=== PATIENT | male | born 1960 | race Caucasian/White ===

== ENCOUNTER 2024-09-14 10:15 | Outpatient (REF) | payer SELFPAY ==
--- NOTE | ~2024-09-14 | XR_ITS ---
EXAMINATION: XR KNEE 3 VIEWS RIGHT HISTORY: BL knee pain/OA? COMPARISON: There are no prior studies available for comparison. FINDINGS: Three views of the right knee are submitted. Osseous mineralization is normal. There is no fracture or dislocation. The joint spaces are preserved. There is chondrocalcinosis. There is no joint effusion. XR/XR knee RT 3V IMPRESSION: Chondrocalcinosis. Otherwise unremarkable examination of the right knee. Electronically signed by: Timothy Lyons MD 09/14/2024 11:54 AM MANI
--- NOTE | ~2024-09-14 | XR_ITS ---
EXAMINATION: XR FOOT 3 OR MORE VIEWS RIGHT HISTORY: achilles area pain COMPARISON: There are no prior studies available for comparison. FINDINGS: Three views of the right foot are submitted. Osseous mineralization is normal. There is no fracture or dislocation. There is mild degenerative change of the MTP joint of the great toe. There is a tiny plantar calcaneal spur. There is calcification of the distal Achilles tendon. XR/XR foot RT min 3V IMPRESSION: Calcification of the distal Achilles tendon. Mild degenerative change of the 1st MTP joint. Electronically signed by: Timothy Lyons MD 09/14/2024 11:55 AM EST
--- NOTE | ~2024-09-14 | XR_ITS ---
EXAMINATION: XR KNEE 1-2 VIEWS LEFT HISTORY: BL knee pain COMPARISON: There are no prior studies available for comparison. FINDINGS: AP and lateral views of the left knee are submitted. Osseous mineralization is normal. There is no fracture or dislocation. The joint spaces are preserved. The soft tissues are unremarkable. XR/XR knee LT 2V IMPRESSION: Unremarkable examination of the left knee. Electronically signed by: Timothy Lyons MD 09/14/2024 11:53 AM MANI
--- NOTE | ~2024-09-14 | XR_ITS ---
EXAMINATION: XR LUMBAR SPINE 2-3 VIEWS HISTORY: LBP COMPARISON: There are no prior studies for comparison. FINDINGS: AP, lateral, and coned down views of the lumbar spine are submitted. Osseous mineralization is normal. Five nonrib-bearing lumbar vertebral bodies are identified, maintaining normal height and alignment without evidence of fracture or spondylolisthesis. There is severe degenerative disc disease at the L5-S1 level with disc space narrowing, osteophyte formation, and vacuum phenomenon. Milder changes are noted at the remaining levels. There is osteoarthritis of the facet joints. The visualized paraspinal soft tissues are unremarkable. XR/XR lumbar spine 2-3V IMPRESSION: Degenerative changes of the lumbar spine as described. Electronically signed by: Timothy Lyons MD 09/14/2024 11:56 AM MANI
[2024-09-14 11:08] LABS: MANUAL DIFF FLAG NO
[2024-09-14 11:15] LABS: Basophils Absolute Auto 0.1 X10*3/uL (0.0-0.2); Basophils Percent Auto 1.1 % (0-2); Eosinophils Absolute Auto 0.2 X10*3/uL (0.0-0.4); Eosinophils Percent Auto 3.6 % (0-4); Hematocrit 43.6 % (42.0-52.0); Hemoglobin 14.3 g/dl (14.0-18.0); Imm Gran Abs Auto 0.03 X10*3/uL (0.00-0.03); Imm Gran Pct Auto 0.5 % (0.0-0.4); Lymphocytes Absolute Auto 1.3 X10*3/uL (1.2-4.9); Lymphocytes Percent Auto 19.9 % (20-40); Mean Corpuscular HGB Conc 32.8 g/dl (31.0-36.0); Mean Corpuscular Volume 79.3 fL (80.0-98.0); Mean Platelet Volume 9.5 fL (9.4-12.4); Monocytes Absolute Auto 0.6 X10*3/uL (0.1-1.2); Monocytes Percent Auto 9.6 % (2-11); Neutrophils Absolute Auto 4.3 x10*3/uL (2.0-8.3); Neutrophils Percent Auto 65.3 % (45-73); Platelet Count 325 X10*3/uL (160-400); Red Cell Distribution Width 14.7 % (11.0-16.0); White Blood Count 6.6 X10*3/uL (4.8-10.8)
[2024-09-14 11:48] LABS: Alanine Aminotransferase 23 U/L (0-40); Albumin Level 4.3 g/dL (3.5-5.0); Alkaline Phosphatase 92 U/L (39-117); Anion Gap 11 (12-20); Aspartate Amino Transferase 19 U/L (5-37); Bilirubin Total 0.6 mg/dL (0.0-1.0); Blood Urea Nitrogen 15 mg/dL (9-16); Calcium 9.3 mg/dL (8.4-10.2); Carbon Dioxide 25 mmol/L (22-29); Chloride 107 mmol/L (96-108); Cholesterol 185 mg/dL (<200); Estimated Glomerular Filt Rate > 60; Glucose Random 93 mg/dL (60-115); HDL Cholesterol 44 mg/dL (>40); LDL Cholesterol Calculated 127 mg/dL (<100); Sodium 139 mmol/L (135-145); Total Protein 7.5 g/dL (6.5-8.0); Triglycerides 71 mg/dL (<150)
[2024-09-14 12:06] LABS: TSH reflex Free T4 2.87 uIU/mL (0.32-4.0)
[2024-09-14 12:08] LABS: Reflex LDLD? No
== END 2024-09-14 10:16 | disposition home or self-care (01) ==
LOC: HO.HHCL 10:15
PROVIDERS: Visit Provider Internal Medicine
DX: I10 Essential (primary) hypertension (principal); M54.50 Low back pain, unspecified; M67.873 Other specified disorders of tendon, right ankle and foot; M17.0 Bilateral primary osteoarthritis of knee
CPT/HCPCS: 36415; 72100; 73560; 73562; 73630; 80053; 80061; 84443; 85025

== ENCOUNTER → 2024-09-14 10:34 | Outpatient (BNV) | payer MEDICARE, MEDICAID, SELFPAY | PROVIDERS: Visit Provider Radiology Diagnostic Radiology | DX: M54.50 Low back pain, unspecified (principal); M65.269 Calcific tendinitis, unspecified lower leg; M25.561 Pain in right knee; M25.562 Pain in left knee | CPT/HCPCS: 72100; 73560; 73562; 73630 ==

== ENCOUNTER 2024-10-12 15:07 | Outpatient (REF) | payer MEDICARE, MEDICAID, SELFPAY ==
--- OUTSIDE RECORDS SUMMARY | 2024-10-12 16:10 | XMS_ITS | Encounter Summary ---
Author Organization [employer] Address [address] [place] [address] Care Team Providers Care Company Accountant Name Role Phone Laure Linton MD Primary Care Provider + Reason for Visit * Reason Comments Hypertension Encounter Details Date Type Department Care Team (Late st Contact Info) Description 10/12/2024 2:00 PM EST Office Visit [facility] [address], [place] [phone] Laure Linton MD [address] [place], [place] [phone] Primary hypertension (Primary Dx); Low back pain of over 3 months duration; Microcytosis; Personal history of other specified conditions Social History Tobacco Use Types Packs/Day Years Used Date Smoking Tobacco: Former Cigarettes Smokeless Tobacco: Never Tobacco Cessation:Counseling Given: Not Answered Alcohol Use Standard Drinks/Week Comments Not Currently 0 (1 standard drink = 0.6 oz pur e alcohol) oca Housing Stability Answer Date Recorded What is your housing situation today? I have ravinder tiana 09/08/[address] you li ve. Do you have problems with any of the following? None of the above 09/08/2024 Food Insecurity Answer Date Recorded Within the past 12 months, y ou worried that your food would run out before you got money to buy more: Never True 09/08/2024 Within the past 12 months,th e food you bought just didn't last and you didn't have enough money to get more: Never True 10/2024 Transportation Answer Date Recorded In the past 12 months, has l ack of transportation kept you from medical appts, meetings, work or from getting things needed for daily living? No 09/08/2024 Utilities Answer Date Recorded In the past 12 months, has t he electric, gas, oil or water [employer] threatened to shut off services in your home? No 09/08/2024 Depression Answer Date Recorded Patient Health Questionnaire-2 Score 0 09/14/2024 Internet Access Answer Date Recorded Internet Access Q1 Yes 09/08/2024 Internet Access Q2 Not on file 09/08/2024 Sex and Gender Information Value Date Recorded Sex Assigned at Male 07/27/2023 12:32 PM EST Legal Sex Male 11:52 AM EDT Gender Identity Male 07/27/2023 12:32 PM EST Sexual Orientation Straight 07/27/2023 12 :32 PM EST documented as of this encounter Last Filed Vital Signs Vital Sign Reading Time Taken Comments Blood Pressure 131/101 10/12/2024 1:44 PM EST Pulse 80 10/12/2024 1:44 PM EST Temperature 36.5 ??C (97.7 ??F) 10/12/2024 1:44 PM ES T Respiratory Rate 16 10/12/2024 1:44 PM EST Oxygen Saturation 98% 10/12/2024 1:44 PM EST Inhaled Oxygen Concentration - - Weight 95.5 kg (210 lb 8 oz) 10/12/2024 1:44 PM EST Height 167.6 cm (5' 6 ) 10/12/2024 1:44 PM EST Body Mass Index 33.98 10/12/2024 1:44 PM EST documented in this encounter Miscellaneous Notes * Patient Education Note - Laure Linton MD - 10/12/2024 7:23 PM EST Images from the original note were not included. Patient Education Table of Contents Plan de alimentaci?n DASH (DASH Eating Plan) To view videos and all your education online visit, [email or web address] or scan this QR code with your smartphone. Access to this content will in one year. Plan de alimentaci?n DASH DASH Eating Plan DASH es la sigla en ingl?s de ?Enfoques alimentarios para detener la hipertensi?n? (Dietary Approaches to Stop Hypertension). El plan de alimentaci?n DASH cuba demostrado: Bajar la presi?n arterial raymundo (hipertensi?n). Reducir el riesgo de diabetes tipo 2, enfermedad card?barrie y accidente cerebrovascular. Ayudar a perder peso. Consejos para seguir martin plan Leer las etiquetas de los alimentos Verifique la cantidad de gregory (sodio) por porci?n en las etiquetas de los alimentos. Elija alimentoscon menos del 5 por ciento del valor diario (VD) de sodio. En general, los alimentos con menos de 300 miligramos (mg) de sodio por porci?n se encuadran dentro de martin plan alimentario. Para encontrar cereales integrales, busque la palabra ?integral? amber primera palabra en la lista de ingredientes. Al ir de compras Compre productos en los que en cortes etiqueta diga: ?bajo contenido de sodio? o ?sin gregory agregada?. Compre alimentos frescos. Evite los alimentos enlatados y comidas precocidas o congeladas. Al cocinar Trate de no agregar gregory cuando cocine. Use hierbas o aderezos sin gregory, en lugar de gregory de draper o gregory fuentes. Consulte al m?dico o farmac?utico antes de usar sustitutos de la gregory. No fr?a los alimentos. A la hora de cocinar los alimentos, opte por hornearlos, hervirlos, grillarlos, asarlos al horno o a la arnaud. Cocine con aceites que jason buenos para el coraz?n. Estos incluyen el aceite de nicholas, canola, aguacate, soja y girasol. Planificaci?n de las comidas Siga carole dieta equilibrada. [place] debe incluir lo siguiente: ? 4?o m?s porciones de frutas y 4 o m?s porciones de verduras por d?a. Trate de que medio plato de cada comida sea de frutas y verduras. ? De 6 a 8?porciones de cereales integrales todos los d?as. ? 6 o menos porciones de carne magra, ave o pescado por d?a. 1 onza es 1 porci?n. Carole porci?n de 3 onzas (85?g) de carne tiene carlie el mismo germán?o que la coburn de la mano. Un huevo es 1 onza (28 g). ? De 2 a 3 porciones de productos l?cteos descremados por d?a. Carole porci?n es 1?taza (237?ml). ? 1 porci?n de nghia secos, semillas o frijoles 5 veces por semana. ? De 2 a 3 porciones de grasas cardiosaludables. Las grasas saludables llamadas ?cidos grasos omega-3 se encuentran en alimentos amber las nueces, las semillas de laura, las leches fortificadas y los huevos. Estas grasas tambi?n se encuentran en los pescados de agua fr?a, amber la jyothi, el salm?n yla caballa. Limite la cantidad que consume de: ? Alimentos enlatados o envasados. ? Alimentos con alto contenido de grasa trans, amber alimentos fritos. ? Alimentos con alto contenido de grasa saturada, amber carne con grasa. ? Postres y otros dulces, bebidas azucaradas y otros alimentos con az?car agregada. ? Productos l?cteos enteros. No le agregue rgegory a los alimentos antes de probarlos. No coma m?s de 4 yemas de huevo por semana. Trate de comer al menos 2 comidas vegetarianas por semana. Consuma m?s comida casera y menos de restaurante, de bares y comida r?pida. Estilo de nara Cuando coma en un restaurante, pida que preparen cortes comida con menos gregory, o kylie, sin nada de gregory. Si letitia alcohol: ? Limite la cantidad que letitia a lo siguiente: ? De 0 a 1 medida al d?a si es leigh ann. ? De 0 a 2 medidas al d?a si es erinn?n. ? Sepa cu?nta cantidad de alcohol hay en las bebidas que janet. En los [place], carole medida esuna botella de cerveza de 12?oz (355?ml), un vaso de vino de 5?oz (148?ml) o un vaso de carole bebida alcoh?lica de raymundo graduaci?n de 1??oz (44?ml). Informaci?n general Evite ingerir m?s de 2,300 mg de gregory por d?a. Si tiene hipertensi?n, es posible que necesite reducir la ingesta de sodio a 1,500 mg por d?a. Trabaje con el m?dico para mantenerse en un peso saludable o para perder peso. Pregunte cu?l es el rango de peso recomendable para usted. La mayor?a de los d?as de la semana, realice al menos 30 minutos de ejercicio que farrah que se acelere cortes coraz?n. Estos pueden incluir caminar, nadar o andar en bicicleta. Trabaje con cortes m?dico o nutricionista para ajustar cortes plan alimentario a iftikhar necesidades mathew?ricas espec?ficas. ?Qu?? alimentos margo comer? Frutas Todas las frutas frescas, congeladas o secas. Frutas enlatadas que est?n en cortes jugo natural y que no tengan az?car agregada. Verduras Verduras frescas o congeladas crudas, cocidas al vapor, asadas o grilladas. Jugos de tomate y verduras con bajo contenido de sodio o reducidos en sodio. Salsa y pasta de tomate con bajo contenido de sodio o reducidas en sodio. Verduras enlatadas con bajo contenido de sodio o reducidas en sodio. Granos Cuadra de salvado o integral. Pasta de salvado o integral. Arroz integral. Duane. Quinua. Fani burgol. Cereales integrales y con bajo contenido de sodio. Cuadra kecia. Galletitas de agua con bajo contenidode grasa y sodio. Tortillas de harina integral. Galen y otras prote?lori Jose o pavo sin piel. Carne de jose o de pavo molida. Cerdo desgrasado. Pescado y mariscos. Claras de huevo. Porotos, guisantes o lentejas secos. Nghia secos, mantequilla de nghia secos y semillas sin gregory. Frijoles enlatados sin gregory. Torres de carne vacuna magra, desgrasada. Carne precocida o curada magra y baja en sodio, amber embutidos o panes de carne. L?cteos Leche descremada (1?%) o descremada (desnatada). Quesos reducidos en grasa, con bajo contenido de grasa o descremados. Queso pang o ricota sin grasa, con bajo contenido de sodio. Yogur semidescremado o descremado. Queso con bajo contenido de grasa y sodio. Grasas y aceites Margarinas untables que no contengan grasas trans. Aceite vegetal. [place]onesa y aderezos para ensaladas livianos, reducidos en grasa o con bajo contenido de grasas (reducidos en sodio). Aceite de canola, c?rtamo, nicholas, aguacate, soja y girasol. Aguacate. Ali?os y condimentos Hierbas. Especias. Mezclas de condimentos sin gregory. Otros alimentos Palomitas de ma?z y pretzels sin gregory. Dulces con bajo contenido de grasas. Es posible que los productos que se enumeran m?s arriba no jason todos los alimentos y las bebidas que puede consumir. Consulte a un nutricionista para obtener m?s informaci?n. ?Qu?? alimentos margo evitar? Frutas Fruta enlatada en christina?bar liviano o espeso. Frutas cocidas en aceite. Frutas con salsa de crema o mantequilla. Verduras Verduras con crema o fritas. Verduras en salsa de queso. Verduras enlatadas regulares que no jason con bajo contenido de sodio o reducidas en sodio. Pasta y salsa de tomates enlatadas regulares que nosean con bajo contenido de sodio o reducidas en sodio. Jugos de tomate y de verduras regulares que no jason con bajo contenido de sodio o reducidos en sodio. Pepinillos. [place]. Granos Productos de panificaci?n hechos con grasa, amber medialunas, magdalenas y algunos panes. Comidas con arroz o pasta seca listas para usar. Galen y otras prote?lori Torres de carne con alto contenido de grasa. Costillas. Carne frita. Tocino. Mortadela, nga y otras galen precocidas o curadas, amber embutidos o panes de carne, que no jason magros y que no jason con bajo contenido de sodio. Grasa de la espalda del cerdo (panceta). Salchicha de cerdo. Nghia secos y semillas con gregory. Frijoles enlatados con gregory agregada. Pescado enlatado o ahumado. Huevos enteros o yemas. Jose o pavo con piel. L?cteos Leche entera o al 2?%, crema y mitad leche y mitad crema. Queso crema entero o con toda cortes grasa. Yogur entero o endulzado. Quesos con toda cortes grasa. Sustitutos de cremas no l?cteas. Coberturas batidas. Quesos para untar y quesos procesados. Grasas y aceites Mantequilla. Margarina en conchita. Stambaugh de cerdo. Materia grasa. Mantequilla clarificada. Grasa detocino. Aceites tropicales amber aceite de duncan, palmiste o coburn. Ali?os y condimentos Gregory de cebolla, gregory de ajo, gregory condimentada, gregory de draper y gregory fuentes. Salsa [place]. Salsat?rtara. Salsa barbacoa. Salsa teriyaki. Salsa de soja, incluso la que tiene contenido reducido de sodio. Salsa de carne. Salsas en cher y envasadas. Salsa de pescado. Salsa de ostras. Salsa rosada. R?kennedi picantes comprados en tiendas. K?tchup. Mostaza. Saborizantes y tiernizantes para carne. Caldo en cubitos. Salsas picantes. Adobos preelaborados o envasados. Aderezos para tacos preelaborados o envasados. Salsas. Aderezos comunes para ensalada. Otros alimentos Palomitas de ma?z y pretzels con gregory. Es posible que los productos que se enumeran m?s arriba no jason todos los alimentos y las bebidas que debe evitar. Consulte a un nutricionista para obtener m?s informaci?n. D?nde obtener m?s informaci?n National Heart, Lung, and Blood [place] (Instituto Nacional del Coraz?n, los Pulmones y la Prasad, NHLBI): nhlbi.nih.gov [place] Heart Association (Asociaci?n Estadounidense del Coraz?n, AHA): heart.org Academy of Nutrition and Dietetics (Academia de Nutrici?n y Diet?melissa): eatright.org National Kidney Foundation (NKF) (Fundaci?n Nacional del Ri???n): kidney.org Esta informaci?n no tiene amber fin reemplazar el consejo del m?dico. Aseg?rese de hacerle al m?dicocualquier pregunta que tenga. Document Released: 2012-08-12 Document Updated: 2023-10-02 Document Reviewed: 2023-10-02 uchoose Patient Education ? 2023 [employer] ([email or web address]). * Patient Education Note - Laure Linton MD - 10/12/2024 7:19 PM EST Images from the original note were not included. Patient Education Table of Contents Dieta con alto contenido de cecilia (Iron-Rich Diet) To view videos and all your education online visit, [email or web address] or scan this QR code with your smartphone. Access to this content will in one year. Dieta con alto contenido de cecilia Iron-Rich Diet El cecilia es un mineral que ayuda al organismo a producir hemoglobina. La hemoglobina es carole prote?na de los gl?bulos rojos que transporta el ox?kurt a los tejidos del cuerpo. Consumir muy poco cecilia puede hacer que se sienta d?jayleen y cansado, y aumentar cortes riesgo de contraer infecciones. El hierroes un componente natural de muchos alimentos, y muchos otros alimentos tienen cecilia agregado (est?n fortificados con cecilia). Es posible que deba seguir carole dieta con alto contenido de cecilia si no tiene suficiente cecilia en el cuerpo debido a ciertas enfermedades. La cantidad de potasio que necesita diariamente depende de cortes edad, cortes sexo y las afecciones que pueda tener. Siga las recomendaciones de cortes m?dico o nutricionista sobre la cantidad de cecilia que necesita consumir por d?a. ?Cu?les son algunos consejos para seguir martin plan? Shayna las etiquetas de los alimentos Shayna las etiquetas de los alimentos para saber la cantidad de miligramos (mg) de cecilia que hay en cada porci?n. Al cocinar Cocine los alimentos en ollas de cecilia. [place]stack estas medidas para que el cuerpo pueda absorber el cecilia de ciertos alimentos con m?s facilidad: ? Antes de cocinarlos, remoje los frijoles sobia la noche. ? Remoje los cereales integrales sobia la noche y cu?lelos antes de usarlos para cocinar. ? Prepare un fermento con las harinas antes del horneado, por ejemplo, usando levadura en la masa del cuadra. Planificaci?n de las comidas Cuando coma alimentos que contengan cecilia, debe comerlos con alimentos ricos en vitamina C. Entre ellos, se incluyen las naranjas, los pimientos, los tomates, las anthony y el fracisoc. La vitamina C ayuda al organismo a absorber el cecilia. Ciertos alimentos y bebidas impiden que el cuerpo absorba el cecilia adecuadamente. No consuma estosalimentos en la misma comida que aquellos con alto contenido de cecilia o con suplementos de cecilia.Estos alimentos incluyen: ? Caf?, t?? hari y vino tinto. ? Leche, productos l?cteos y alimentos con alto contenido de calcio. ? Porotos y soja. ? Cereales integrales. Informaci?n general [place] los suplementos de cecilia solamente amber se lo haya indicado el m?dico. La sobredosis de cecilia puede ser potencialmente mortal. Si le recetan suplementos de cecilia, t?melos con jugo de naranja o un suplemento de vitamina?C. Cuando coma alimentos fortificados con cecilia o tome un suplemento de cecilia, tambi?n debe consumiralimentos que contengan cecilia naturalmente, amber carne, aves y pescado. Consumir alimentos ricos en cecilia naturalmente ayuda al organismo a absorber el cecilia que se a?jose manuel a otros alimentos o que contiene un suplemento. El cecilia de origen animal se absorbe mejor que el cecilia de origen vegetal. ?Qu?? alimentos margo comer? Frutas Ciruelas pasas. Pasas de uva. Consuma frutas con alto contenido de vitamina C, por ejemplo, naranjas, pomelos y fresas, junto conlos alimentos ricos en cecilia. Verduras [place]spin[place] (cocida). Guisantes. Br?coli. Verduras fermentadas. Consuma verduras ricas en vitamina C, amber las verduras de hoja, las anthony, los morrones y los tomates, junto con los alimentos ricos en cecilia. Granos Cereales para el desayuno fortificados con cecilia. Cuadra de fani integral fortificado con cecilia. Arroz enriquecido. Granos germinados. Galen y otras prote?lori H?gado de res. Carne de brayan. Lamar. Jose. Ostras. Camarones. At?n. Nola. Garbanzos. Nghia secos. Tofu. Semillas de calabaza. Bebidas Jugo de tomate. Jugo de naranja reci?n exprimido. Jugo de ciruelas. T?? de hibisco. Batidos de desayuno instant?neos fortificados con cecilia. Dulces y postres Melaza daily. Ali?os y condimentos Tahini. Salsa de soja fermentada. Otros alimentos Germen de fani. Es posible que los productos mencionados arriba no formen carole lista completa de las bebidas o los alimentos recomendados. Consulte a un nutricionista para obtener m?s informaci?n. ?Qu?? alimentos margo limitar? Estos son los alimentos que deben limitarse al comer alimentos ricos en cecilia, ya que pueden reducir la absorci?n de cecilia por parte del cuerpo. Granos Cereales integrales. Cereal de salvado. Harina de salvado. Galen y otras prote?lori Soja. Productos elaborados a base de prote?na de la soja. Frijoles negros. Lentejas. Frijoles mungo. Guisantes secos. L?cteos Leche. Crema. Queso. Yogur. Reques?n. Bebidas Caf?. T?? hari. Vino tinto. Dulces y postres [place]. Chocolate. Helados. Ali?os y condimentos [place]. Or?gano. Grandes cantidades de perejil. Es posible que los productos que se enumeran m?s arriba no constituyan carole lista completa de los alimentos y las bebidas que debe limitar. Consulte a un nutricionista para obtener m?s informaci?n. Resumen El cecilia es un mineral que ayuda al organismo a producir hemoglobina. La hemoglobina es carole prote?na de los gl?bulos rojos que transporta el ox?kurt a los tejidos del cuerpo. El cecilia es un componente natural de muchos alimentos, y muchos otros alimentos tienen cecilia agregado (est?n fortificados con cecilia). Cuando coma alimentos que contengan cecilia, debe tomarlos con alimentos ricos en vitamina C. La vitamina C ayuda al organismo a absorber el cecilia. Ciertos alimentos y bebidas impiden que el cuerpo absorba el cecilia adecuadamente, amber los cereales integrales y los productos l?cteos. Debe evitar consumir estos alimentos en la misma comida que aquellos con alto contenido de cecilia o con suplementos de cecilia. Esta informaci?n no tiene amber fin reemplazar el consejo del m?dico. Aseg?rese de hacerle al m?dicocualquier pregunta que tenga. Document Released: 2007-06-10 Document Updated: 2021-08-31 Document Reviewed: 2021-08-19 Elsevier Patient Education ? 2023 [employer] ([email or web address]). * Assessment & Plan Note - Dianna Rizvi MA - 10/12/2024 2:53 PM EST Associated Problem(s): Primary hypertension Uncontrolled today. Non compliant w/meds, today he is off medications for 2+ weeks. Start Losartan 25 mg and FU BP with RN in 2-3 weeks. Counseled re low salt diet. Advised to start exercise once he starts on Losartan and does not develop any side effects. Check home BP BIW and prn CP/[facility]BA/[facility] Non smoking patient. FU with me in 3-4 months. documented in this encounter Plan of Treatment Upcoming Encounters Date Type Department Care Team (Late st Contact Info) Description 10/26/2024 10:00 AM EST Clinical Support [facility] [address] [place] [address] 12/29/2024 10:00 AM EDT Office Visit [facility] [address] [place] [address] Breanna Orozco Scheduled Orders Name Type Priority Associated Diagnoses Orde r Schedule Ferritin Lab Routine Microcytosis Expected: 10/12/2024, Expires: 10/12/2025 Hemoglobin Electrophoresis Lab Routine Microcytosis Expected: 10/12/2024 (Approximate), Expires: 10/12/2025 Hepatitis Panel, General Lab Routine Microcytosis Personal history of other specified conditions Expected: 10/12/2024 (Approximate), Expires: 10/12/2025 documented as of this encounter Visit Diagnoses Diagnosis Primary hypertension- Primary Unspecified essential hypertension Low back pain of over 3 months duration Microcytosis Other abnormality of red blood cells Personal history of other specified conditions documented in this encounter Care Teams Company Accountant Relationship Specialty Start Date End Date Laure Linton MD [address] [place] [id number] PCP - General Internal Medicine 09/14/24 documented as of this encounter
--- OUTSIDE RECORDS SUMMARY | 2024-10-12 16:10 | XMS_ITS | Encounter Summary ---
Author Organization [employer] Address [address] 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 Name Role Phone Laure Linton MD Primary Care Provider + Reason for Referral * Consultation (Routine) - Authorized Specialty Diagnoses / Procedures Referred By Contac t Referred To Contact Optometry Diagnoses Primary hypertension Laure Linton MD [address] [place] [id number] Phone: tel: fax: [facility] [address] [place] [phone] Phone: tel: fax: Referral ID Status Reason Start Date Expiration Date Visits Requested Visits Authorized [id number] Authorized Consult and Treat 09/14/2024 09/14/2025 1 1 Reason for Visit * Reason Comments New patient appointment Encounter Details Date Type Department Care Team (Latest Contact Info) Description 09/14/2024 9:30 AM EST Office Visit [facility] [address] [place] [address] [phone] Laure Linton MD [address] [place] [address] [phone] Primary hypertension (Primary Dx); Rotator cuff injury, left, sequela; Primary osteoarthritis of both knees; Achilles tendinosis of right ankle; Low back pain of over 3 months duration; Encounter for immunization Social History Tobacco Use Types Packs/Day Years Used Date Smoking Tobacco: Former Cigarettes Smokeless Tobacco: Never Alcohol Use Standard Drinks/Week Comments Not Currently 0 (1 standard drink = 0.6 oz pur e alcohol) oca Housing Stability Answer Date Recorded What is your housing situation today? I have ravinder montiel 09/08/[address] you li [...] t he electric, gas, oil or water company threatened to shut off services in your [...] Sign Reading Time Taken Comments Blood Pressure 157/105 09/14/2024 9:11 AM EST Pulse 94 09/14/2024 9:11 AM EST Temperature 35.7 ??C (96.2 ??F) 09/14/2024 9:11 AM ES T Respiratory Rate - - Oxygen Saturation 97% 09/14/2024 9:11 AM EST Inhaled Oxygen Concentration - - Weight 96.3 kg (212 lb 4 oz) 09/14/2024 9:11 AM EST Height 167.6 cm (5' 6 ) 09/14/2024 9:11 AM EST Body Mass Index 34.26 09/14/2024 9:11 AM EST documented in this encounter Progress Notes * Laure Linton MD - 09/14/2024 9:30 AM EST SUBJECTIVE: Jessee Duran is a 64 y.o. 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 Deniesrecent illness, injury, or hospitalization. Patient here to establish care. Pt states it has been 4 years since last PCP visit. PMHx: Left Rotator Cuff injury, HTN, Bilateral Knee Arthritis PSurgHx: Left Rotator Cuff Surgery (2019) All: Advil (Hives) Social HX: No cigs, no THC, no ETOH, no rec drug use Family HX: Mother: unknown Father: unknown Siblings: CVA (older sister) - HTN: Questions concerning palpitations and heart condition. -Lives with daughter and her family. He is currently not working. The rest of his family lives in [place]. Last Colonoscopy: unknown Adult IZ: Influenza 06/2024; Covid x1 07/2023 STI/STD testing: not interested Sexually Active: No Relationship: no Acute Concerns: Pt states he is doing well, but has been having right ankle pain and swelling. Pt has a Hx of arthritis in both knees and low back pain. Social History Social History Narrative Lives with his daughter and her family, other kids live in [place] He's disabled due to work related injury Patient Active Problem List Diagnosis Normal oral exam Inadequate occlusion of dental anglican Primary hypertension Rotator cuff injury, left, sequela Primary osteoarthritis of both knees Achilles tendinosis of right ankle Low back pain of over 3 months duration Family History Problem Relation Name Age of Onset Other (cva) Sister Review of Systems Constitutional: Negative for chills, fatigue and fever. HENT: Negative for congestion, ear pain, nosebleeds, rhinorrhea, sinus pressure, sore throat and trouble swallowing. Eyes: Positive for visual disturbance (blurry). Negative for pain and discharge. Respiratory: Negative for cough, chest tightness and shortness of breath. Cardiovascular: Negative for chest pain, palpitations and leg swelling. Gastrointestinal: Negative for blood in stool, constipation, diarrhea and nausea. Endocrine: Negative for polydipsia and polyuria. Genitourinary: Negative for difficulty urinating, frequency and genital sores. Musculoskeletal: Positive for arthralgias (LE, Sciatic), back pain and joint swelling (Rt ankle). Negative for neck pain. Skin: Negative for rash. Allergic/Immunologic: Negative for environmental allergies. Neurological: Negative for dizziness, seizures, weakness, light-headedness and headaches. Hematological: Negative for adenopathy. Psychiatric/Behavioral: Negative for agitation, behavioral problems, self-injury and suicidal ideas. OBJECTIVE: Vitals: 09/14/24 0911 BP: (!) 157/105 Pulse: 94 Temp: 96.2 ??F (35.7 ??C) SpO2: 97% Physical Exam Constitutional: Appearance: Normal appearance. HENT: Right Ear: Tympanic membrane and ear canal normal. Left Ear: Tympanic membrane and ear canal normal. Mouth/Throat: Mouth: Mucous membranes are moist. Pharynx: No oropharyngeal exudate or posterior oropharyngeal erythema. Eyes: Pupils: Pupils are equal, round, and reactive to light. Cardiovascular: Rate and Rhythm: Normal rate and regular rhythm. Heart sounds: No murmur heard. Pulmonary: Breath sounds: Normal breath sounds. No wheezing. Abdominal: General: Bowel sounds are normal. Palpations: Abdomen is soft. Tenderness: There is no abdominal tenderness. Musculoskeletal: Left shoulder: Tenderness present. Decreased range of motion. Cervical back: Normal range of motion. No tenderness. Lumbar back: Tenderness present. Right knee: Crepitus present. Tenderness present. Left knee: Crepitus present. Tenderness present. Right foot: Deformity (achiles area exostosis (tender)) present. Comments: Tranverse healed surgical scar on left shoulder Feet: Right foot: Skin integrity: No ulcer or callus. Left foot: Skin integrity: No ulcer or callus. Skin: General: Skin is warm. Neurological: General: No focal deficit present. Mental Status: He is alert and oriented to person, place, and time. Psychiatric: Mood and Affect: Mood normal. Encounter Date: 09/14/24 ECG 12 lead Narrative NSR@72 bpm. Left axis deviation. Inverted T waves on lat leads (?LVH). Here's a Q on aVF (not on contiguous lead) likely related to LV overload (?LVH?) ASSESSMENT/PLAN Problem List Items Addressed This Visit Primary hypertension - Primary Uncontrolled, untreated. Will start Losartan 50 mg. Counseled re low salt diet/increase moderate physical activity. Check home BP BIW and prn CP/CUBA/PENN Non smoking patient. Follow up in 3-4 months and get labs. 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 Take Tylenol prn pain and follow up prn. Primary osteoarthritis of both knees Take Tylenol prn. Advised weight reduction and gave information about strengthening exercises both knees and lower back. Relevant Orders CBC auto differential (Completed) XR Knee 3 Views Right (Completed) XR Knee 1-2 Views Left (Completed) Achilles tendinosis of right ankle Advised to use warm compresses and wear a padded heel support. Take Tylenol prn will follow up next visit, most likely has Osteophyte. Relevant Orders CBC auto differential (Completed) XR Foot 3+ Views Right (Completed) Low back pain of over 3 months duration Advised weight reduction. Take Tylenol prn pain. I gave information about strengthening exercise of lowe back and follow up next visit. Relevant Orders XR Lumbar Spine 2-3 Views (Completed) Other Visit Diagnoses Encounter for immunization Relevant Orders COVID-19 VACCINE (Pfizer) [id number] 12 yrs + (Completed) Follow Up: No current outpatient medications on file prior to visit. No current facility-administered medications on file prior to visit. IDinora, am serving as a scribe to document services personally performed by Dr. Laure Linton, based on the patient's response to questions by provider and provider's statements to me. documented in this encounter Miscellaneous Notes * Assessment & Plan Note - Dinora Garcia - 09/14/2024 9:58 AM ESTAssociated Problem(s): Low back pain of over 3 months duration Advised weight reduction. Take Tylenol prn pain. I gave information about strengthening exercise of lowe back and follow up next visit. * Assessment & Plan Note - Dinora Garcia - 09/14/2024 9:58 AM ESTAssociated Problem(s): Achilles tendinosis of right ankle Advised to use warm compresses and wear a padded heel support. Take Tylenol prn will follow up next visit, most likely has Osteophyte. * Assessment & Plan Note - Dinora Garcia - 09/14/2024 9:57 AM ESTAssociated Problem(s): Primary osteoarthritis of both knees Take Tylenol prn. Advised weight reduction and gave information about strengthening exercises both knees and lower back. 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 Take Tylenol prn pain and follow up prn. * Assessment & Plan Note - Dinora Garcia - 09/14/2024 9:51 AM ESTAssociated Problem(s): Primary hypertension Uncontrolled, untreated. Will start Losartan 50 mg. Counseled re low salt diet/increase moderate physical activity. Check home BP BIW and prn CP/CUBA/PENN Non smoking patient. Follow up in 3-4 months and get labs. * Result Encounter Note - Laure Linton MD - 09/14/2024 9:30 AM EST Patient has mild hyperlipidemia and microcytoses, otherwise nl CMP and CBC, I will fu on those at next appt. * Result Encounter Note - Laure Linton MD - 09/14/2024 9:30 AM EST Xray of right foot showed changes c/w OA and calcific tendinosis, it had been d/w patient today, I will fu with him at upcoming appt documented in this encounter Plan of Treatment Upcoming Encounters Date Type Department Care Team (Late st Contact Info) Description 10/26/2024 10:00 AM EST Clinical Support [facility] [address] [place] [address] 12/29/2024 10:00 AM EDT Office Visit [facility] [address] [place] [address] Breanna Orozco Scheduled Referrals Name Type Priority Associated Diagnoses Orde r Schedule Referral to Optometry Outpatient Referral Routine Primary hypertension Expected: 09/14/2024 (Approximate), Expires: 09/14/2025 documented as of this encounter Procedures Procedure Name Priority Date/Time Associated Diagnosis Comments XR FOOT 3+ VIEWS RIGHT Routine 09/14/2024 10:34 AM EST Achilles tendinosis of right ankle XR KNEE 3 VIEWS RIGHT Routine 09/14/2024 10:34 AM EST Primary osteoarthritis of both knees XR KNEE 1-2 VIEWS LEFT Routine 09/14/2024 10:34 AM EST Primary osteoarthritis of both knees XR LUMBAR SPINE 2-3 VIEWS Routine 09/14/2024 10:34 AM EST Low back pain of over 3 months duration TSH W/REFLEX TO FT4 Routine 09/14/2024 1 0:19 AM EST Primary hypertension LIPID PANEL WITH REFLEX TO DIRECT LDL Routine 09/14/2024 10:19 AM EST Primary hypertension CBC WITH AUTO DIFFERENTIAL Routine 09/14/2024 10:19 AM EST Primary hypertension Primary osteoarthritis of both knees Achilles tendinosis of right ankle COMPREHENSIVE METABOLIC PANEL Routine 09/14/2024 10:19 AM EST Primary hypertension ECG 12-LEAD Routine 09/14/2024 9:53 AM EST Primary hypertension documented in this encounter Results * XR Knee 1-2 Views Left (09/14/2024 10:34 AM EST) Anatomical Region Laterality Modality Lower Extremities, Knee Left [facility] 09/14/2024 10:3 4 AM EST Narrative 09/14/2024 11:55 AM EST ? [facility] ?[address] ?[place] [address] ?XRay Report ? Signed ? Patient: Winston,Jessee ?MR#: [id number] ? : 1960 ?Acct:[id number] ? Age/Sex: 64 / M ?ADM Date: 09/14/24 ? Loc: HO.HHCL ? Attending Dr: Laure Linton MD ? Ordering Physician: Laure Linton MD ?? Date of Service: 09/14/24 ?? Procedure(s): XR knee LT 2V ?? Accession Number(s): [id number] ? cc: Laure Linton MD ? EXAMINATION: ??XR KNEE 1-2 VIEWS LEFT ? HISTORY: BL knee pain ? COMPARISON: There are no prior studies available for comparison. ? FINDINGS: ? AP and lateral views of the left knee are submitted. ??Osseous ?? mineralization is normal. ??There is no fracture or dislocation. ??The ?? joint spaces are preserved. ??The soft tissues are unremarkable. ? XR/XR knee LT 2V ?? IMPRESSION: ? Unremarkable examination of the left knee. ? Electronically signed by: ??Timothy Lyons MD ??09/14/2024 11:53 AM EST ? Dictated By: ?Timothy Lyons MD ? Signed By: ?<Electronically signed by Timothy Lyons MD in OV> ?09/14/24 1153 ? DD/ 1034 ? TD/TT: 09/14/24 1100 ? Manager Pharmacy: ? Procedure Note Sara Fisher - 09/15/2024 [id number] [place] [address] XRay Report Signed Patient: Jessee WinstonMR#: [id number] : 9Acct:[id number] Age/Sex: 64 / MADM Date: 09/14/24 Loc: HO.HHCL Attending Dr: Laure Linton MD Ordering Physician: Laure Linton MD Date of Service: 09/14/24 Procedure(s): XR knee LT 2V Accession Number(s): [id number] cc: Laure Linton MD EXAMINATION: XR KNEE 1-2 VIEWS LEFT HISTORY: BL knee pain COMPARISON: There are no prior studies available for comparison. FINDINGS: AP and lateral views of the left knee are submitted. Osseous mineralization is normal. There is no fracture or dislocation. The joint spaces are preserved. The soft tissues are unremarkable. XR/XR knee LT 2V IMPRESSION: Unremarkable examination of the left knee. Electronically signed by: Timothy Lyons MD 09/14/2024 11:53 AM EST RP Dictated By: Timothy Lyons MD Signed By: <Electronically signed by Timothy Lyons MD in OV> 09/14/24 1153 DD/ 1034 TD/TT: 09/14/24 1100 Manager Pharmacy: Laure Linton MD IMG XR PROCEDURES Edited Result - Final * XR Foot 3+ Views Right (09/14/2024 10:34 AM EST) Anatomical Region Laterality Modality Lower Extremities, Foot Right Radiogra phic Imaging 09/14/2024 10:3 4 AM EST Narrative 09/14/2024 11:57 AM EST ? [facility] ?[address] ?[place] [address] ?XRay Report ? Signed ? Patient: Winston,Jessee ?MR#: [id number] ? : 1960 ?Acct:[id number] ? Age/Sex: 64 / M ?ADM Date: 01/08/25 ? Loc: HO.HHCL ? Attending Dr: Laure Linton MD ? Ordering Physician: Laure Linton MD ?? Date of Service: 09/14/24 ?? Procedure(s): XR foot RT min 3V ?? Accession Number(s): [id number] ? cc: Laure Linton MD ? EXAMINATION: ??XR FOOT 3 OR MORE VIEWS RIGHT ? HISTORY: achilles area pain ? COMPARISON: There are no prior studies available for comparison. ? FINDINGS: ? Three views of the right foot are submitted. ??Osseous mineralization is ?? normal. ??There is no fracture or dislocation. ??There is mild ?? degenerative change of the MTP joint of the great toe. There is a tiny ?? plantar calcaneal spur. ??There is calcification of the distal Achilles ?? tendon. ? XR/XR foot RT min 3V ?? IMPRESSION: ? Calcification of the distal Achilles tendon. Mild degenerative change ?? of the 1st MTP joint. ? Electronically signed by: ??Timothy Lyons MD ??09/14/2024 11:55 AM EST ?? RP ? Dictated By: ?Timothy Lyons MD ? Signed By: ?<Electronically signed by Timothy Lyons MD in OV> ?09/14/24 1155 ? DD/ 1034 ? TD/TT: 09/14/24 1100 ? Manager Pharmacy: ? Procedure Note Donalbertater, Image - 09/15/[address] [address] XRay Report Signed Patient: Raimundo Winston#: [id number] : 9Acct:[id number] Age/Sex: 64 / MADM Date: 09/14/24 Loc: .[facility] Attending Dr: Laure Linton MD Ordering Physician: Laure Linton MD Date of Service: 09/14/24 Procedure(s): XR foot RT min 3V Accession Number(s): [id number] cc: Laure Linton MD EXAMINATION: XR FOOT 3 OR MORE VIEWS RIGHT HISTORY: achilles area pain COMPARISON: There are no prior studies available for comparison. FINDINGS: Three views of the right foot are submitted. Osseous mineralization is normal. There is no fracture or dislocation. There is mild degenerative change of the MTP joint of the great toe. There is a tiny plantar calcaneal spur. There is calcification of the distal Achilles tendon. XR/XR foot RT min 3V IMPRESSION: Calcification of the distal Achilles tendon. Mild degenerative change of the 1st MTP joint. Electronically signed by: Timothy Lyons MD 09/14/2024 11:55 AM EST Dictated By: Timothy Lyons MD Signed By: <Electronically signed by Timothy Lyons MD in OV> 09/14/24 1155 DD/ 1034 TD/TT: 09/14/24 1100 Manager Pharmacy: us Laure Linton MD IMG XR PROCEDURES Edited Result - Final * XR Knee 3 Views Right (09/14/2024 10:34 AM EST) Anatomical Region Laterality Modality Lower Extremities, Knee Right Radiogra phic Imaging 09/14/2024 10:3 4 AM EST Narrative 09/14/2024 11:56 AM EST ? [facility] ?[address] ?[place] [address] ?XRay Report ? Signed ? Patient: Jessee Winston ?MR#: [id number] ? : 1960 ?Acct:[id number] ? Age/Sex: 64 / M ?ADM Date: 09/14/24 ? Loc: HO.HHCL ? Attending Dr: Laure Linton MD ? Ordering Physician: Laure Linton MD ?? Date of Service: 09/14/24 ?? Procedure(s): XR knee RT 3V ?? Accession Number(s): [id number] ? cc: Laure Linton MD ? EXAMINATION: ??XR KNEE 3 VIEWS RIGHT ? HISTORY: BL knee pain/OA? COMPARISON: There are no prior studies available for comparison. ? FINDINGS: ? Three views of the right knee are submitted. ??Osseous mineralization is ?? normal. ??There is no fracture or dislocation. ??The joint spaces are ?? preserved. ??There is chondrocalcinosis. There is no joint effusion. ? XR/XR knee RT 3V ?? IMPRESSION: ? Chondrocalcinosis. Otherwise unremarkable examination of the right ?? knee. ? Electronically signed by: ??Timothy Lyons MD ??09/14/2024 11:54 AM EST ?? RP ? Dictated By: ?Timothy Lyons MD ? Signed By: ?<Electronically signed by Timothy Lyons MD in OV> ?09/14/24 1154 ? DD/ 1034 ? TD/TT: 09/14/24 1100 ? Manager Pharmacy: ? Procedure Note Donchencho, Image - 09/15/[address] [address] XRay Report Signed Patient: Jessee WinstonMR#: [id number] : 9Acct:[id number] Age/Sex: 64 / MADM Date: 09/14/24 Loc: HO.[facility] Attending Dr: Laure Linton MD Ordering Physician: Laure Linton MD Date of Service: 09/14/24 Procedure(s): XR knee RT 3V Accession Number(s): [id number] cc: Laure Linton MD EXAMINATION: XR KNEE 3 VIEWS RIGHT HISTORY: BL knee pain/OA? COMPARISON: There are no prior studies available for comparison. FINDINGS: Three views of the right knee are submitted. Osseous mineralization is normal. There is no fracture or dislocation. The joint spaces are preserved. There is chondrocalcinosis. There is no joint effusion. XR/XR knee RT 3V IMPRESSION: Chondrocalcinosis. Otherwise unremarkable examination of the right knee. Electronically signed by: Timothy Lyons MD 09/14/2024 11:54 AM EST RP Dictated By: Timothy Lyons MD Signed By: <Electronically signed by Timothy Lyons MD in OV> 09/14/24 1154 DD/ 1034 TD/TT: 09/14/24 1100 Manager Pharmacy: Laure Linton MD IMG XR PROCEDURES Edited Result - Final * XR Lumbar Spine 2-3 Views (09/14/2024 10:34 AM EST) Anatomical Region Laterality Modality Spine, L-spine Radiographic Joi ging 09/14/2024 10:3 4 AM EST Narrative 09/14/2024 11:59 AM EST ? [facility] ?[address] ?[place] [address] ?XRay Report ? Signed ? Patient: Winston,Jessee ?MR#: [id number] ? : 1960 ?Acct:[id number] ? Age/Sex: 64 / M ?ADM Date: 09/14/24 ? Loc: HO.HHCL ? Attending Dr: Laure Linton MD ? Ordering Physician: Laure Linton MD ?? Date of Service: 09/14/24 ?? Procedure(s): XR lumbar spine 2-3V ?? Accession Number(s): [id number] ? cc: Laure Linton MD ? EXAMINATION: ??XR LUMBAR SPINE 2-3 VIEWS ? HISTORY: LBP ? COMPARISON: There are no prior studies for comparison. ? FINDINGS: ??AP, lateral, and coned down views of the lumbar spine are ?? submitted. ??Osseous mineralization is normal. ??Five nonrib-bearing ?? lumbar vertebral bodies are identified, maintaining normal height and ?? alignment without evidence of fracture or spondylolisthesis. ??There is ?? severe degenerative disc disease at the L5-S1 level with disc space ?? narrowing, osteophyte formation, and vacuum phenomenon. Milder changes ?? are noted at the remaining levels. ??There is osteoarthritis of the ?? facet joints. ??The visualized paraspinal soft tissues are unremarkable. ? XR/XR lumbar spine 2-3V ?? IMPRESSION: ?? Degenerative changes of the lumbar spine as described. ? Electronically signed by: ??Timothy Lyons MD ??09/14/2024 11:56 AM EST ?? RP ? Dictated By: ?Timothy Lyons MD ? Signed By: ?<Electronically signed by Timothy Lyons MD in OV> ?09/14/24 1156 ? DD/ 1034 ? TD/TT: 09/14/24 1100 ? Manager Pharmacy: ? Procedure Note Phillip, Sara - 09/15/[address] [place] [address] XRay Report Signed Patient: Jessee WinstonMR#: [id number] : 9Acct:[id number] Age/Sex: 64 / MADM Date: 09/14/24 Loc: HO.[facility] Attending Dr: Laure Linton MD Ordering Physician: Laure Linton MD Date of Service: 09/14/24 Procedure(s): XR lumbar spine 2-3V Accession Number(s): [id number] cc: Laure Linton MD EXAMINATION: XR LUMBAR SPINE 2-3 VIEWS HISTORY: LBP COMPARISON: There are no prior studies for comparison. FINDINGS: AP, lateral, and coned down views of the lumbar spine are submitted. Osseous mineralization is normal. Five nonrib-bearing lumbar vertebral bodies are identified, maintaining normal height and alignment without evidence of fracture or spondylolisthesis. There is severe degenerative disc disease at the L5-S1 level with disc space narrowing, osteophyte formation, and vacuum phenomenon. Milder changes are noted at the remaining levels. There is osteoarthritis of the facet joints. The visualized paraspinal soft tissues are unremarkable. XR/XR lumbar spine 2-3V IMPRESSION: Degenerative changes of the lumbar spine as described. Electronically signed by: Timothy Lyons MD 09/14/2024 11:56 AM EST Dictated By: Timothy Lyons MD Signed By: <Electronically signed by Timothy Lyons MD in OV> 09/14/24 1156 DD/ 1034 TD/TT: 09/14/24 1100 Manager Pharmacy: Laure Linton MD IMG XR PROCEDURES Edited Result - Final * (ABNORMAL) CBC auto differential (09/14/2024 10:19 AM EST) White Blood Count 6.6 4.8 - 10.8 X10*3/uL [facility] Red Blood Count 5.50 4.60 - 5.80 X10*6/uL [facility] Hemoglobin 14.3 14.0 - 18.0 g/dl [facility] Hematocrit 43.6 42.0 - 52.0 % [facility] Mean Corpuscular Volume 79.3(L) 80.0 - 98.0 fL [facility] Mean Corpuscular Hemoglobin 26.0(L) 27.0 - 33.0 pg [facility] Mean Corpuscular HGB Conc 32.8 31.0 - 36.0 g/dl [facility] Red Cell Distribution Width 14.7 11.0 - 16.0 % [facility] Platelet Count 325 160 - 400 X10*3/uL [facility] Mean Platelet Volume 9.5 9.4 - 12.4 fL [facility] Neutrophils Percent Auto 65.3 45 - 73 % [facility] Imm Gran Pct Auto 0.5(H) 0.0 - 0.4 % [facility] Lymphocytes Percent Auto 19.9(L) 20 - 40 % [facility] Monocytes Percent Auto 9.6 2 - 11 % [facility] Eosinophils Percent Auto 3.6 0 - 4 % [facility] Basophils Percent Auto 1.1 0 - 2 % [facility] NRBC Pct Auto 0.0 0.0 - 0.2 /100WBC [facility] Neutrophils Absolute Auto 4.3 2.0 - 8.3 x10*3/uL [facility] Imm Gran Abs Auto 0.03 0.00 - 0.03 X10*3/uL [facility] Lymphocytes Absolute Auto 1.3 1.2 - 4.9 X10*3/uL [facility] Monocytes Absolute Auto 0.6 0.1 - 1.2 X10*3/uL [facility] Eosinophils Absolute Auto 0.2 0.0 - 0.4 X10*3/uL [facility] Basophils Absolute Auto 0.1 0.0 - 0.2 X10*3/uL [facility] NRBC Abs Auto 0.000 0.0 - 0.012 X10*3/uL [facility] Blood Venous blood specimen / Unknown 09/14/2024 10:19 AM EST 09/14/2024 11:07 AM EST us Valarie Royer MD LAB BLOOD ORDERABLES Fin al Result Performing Organization Address City/[facility]/ZIP Co de Phone Number [facility] [facility] [address] [place] [phone] * TSH with Reflex to Free T4 (09/14/2024 10:19 AM EST) TSH reflex Free T4 2.87 0.32 - 4.0 uIU/mL [facility] Blood 09/14/2024 10:1 9 AM EST 09/14/2024 11:07 AM EST Laure Linton MD LAB BLOOD ORDERABLES Fin al Result Performing Organization Address [facility] Co de Phone Number [facility] [address] [place] [phone] * (ABNORMAL) Lipid Panel with Reflex to Direct LDL (09/14/2024 10:19 AM EST) Triglycerides 71 <150 mg/dL [facility] Comment:Desirable Triglyceri de: less than 150 mg/dLBorderline High Triglyceride 150-199 mg/dLHigh Triglyceride: 200-499 mg/dLVery High Triglyceride: greater than or equal to 5OO mg/dL Cholesterol 185 <200 mg/dL [facility] Comment:Desirable Cholestero l: less than 200 mg/dLBorderline High Cholesterol: 200-239 mg/dLHigh Cholesterol: greater than 239 mg/dL LDL Cholesterol Calculated 127(H) <100 mg/dL [facility] Comment:Desirable LDL: less than 100 mg/dLNear Optimal/Above Optimal LDL: 110- 129 mg/dLBorderline High LDL: 130-159 mg/dLHigh LDL: 160-189 mg/dLVery High LDL: greater than or equal to 190 mg/dL HDL Cholesterol 44 >40 mg/dL [facility] Comment:Desirable HDL: great er than 40 mg/dL Note: This HDL assay may give artificially low results in patients with liver disease. Blood 09/14/2024 10:1 9 AM EST 09/14/2024 11:07 AM EST us Laure Linton MD LAB BLOOD ORDERABLES Fin al Result Performing Organization Address City/[facility]/ZIP Co de Phone Number [facility] [address] [place] [phone] * (ABNORMAL) Comprehensive Metabolic Panel (09/14/2024 10:19 AM EST) Sodium 139 135 - 145 mmol/L [facility] Potassium 4.0 3.3 - 5.1 mmol/L [facility] Chloride 107 96 - 108 mmol/L [facility] Carbon Dioxide 25 22 - 29 mmol/L [facility] Anion Gap 11(L) 12 - 20 [facility] Urea Nitrogen (BUN) 15 9 - 16 mg/dL [facility] Creatinine, Serum 0.82 0.5 - 1.4 mg/dL [facility] Estimated Glomerular Filt Rate >60 [facility] Comment:Chronic Kidney Disea se: Estimated GFR < 60 mL/min/[id number] Kidney Disease: Estimated GFR < 15 mL/min/1.73m2 Glucose 93 60 - 115 mg/dL [facility] Calcium 9.3 8.4 - 10.2 mg/dL [facility] Bilirubin, Total 0.6 0.0 - 1.0 mg/dL [facility] Aspartate Amino Transferase 19 5 - 37 U/L [facility] Alanine Aminotransferase 23 0 - 40 U/L [facility] Total Protein 7.5 6.5 - 8.0 g/dL [facility] Albumin Level 4.3 3.5 - 5.0 g/dL [facility] Alkaline Phosphatase 92 39 - 117 U/L [facility] Blood Venous blood specimen / Unknown 09/14/2024 10:19 AM EST 09/14/2024 11:07 AM EST us Laure Linton MD LAB BLOOD ORDERABLES Fin al Result [facility] [address] [place] [phone] * ECG 12 lead (09/14/2024 9:53 AM EST) Narrative Laure Linton MD - 09/14/2024 9:53 AM EST NSR@72 bpm. Left axis deviation. Inverted T waves on lat leads (?LVH). Here's a Q on aVF ??(not on contiguous lead) likely related to LV overload (?LVH?) us Laure Linton MD ECG ORDERABLES Final Re sult documented in this encounter Visit Diagnoses Diagnosis Primary hypertension- Primary Unspecified essential hypertension Rotator cuff injury, left, sequela Primary osteoarthritis of both knees Achilles tendinosis of right ankle Low back pain of over 3 months duration Encounter for immunization documented in this encounter Care Teams Pack Press Operator Relationship Specialty Start Date End Date Laure Linton MD [address] [place] [phone] PCP - General Internal Medicine 09/14/24 documented as of this encounter
--- OUTSIDE RECORDS SUMMARY | 2024-10-12 16:10 | XMS_ITS | Clinical Summary ---
Author Organization [employer] Address [address] [facility] [address] [place] [address] Care Team Providers Care Office Runner Name Role Phone Laure Linton MD Primary Care Provider + Allergies Active Allergy Reactions Criticality Noted Date Comments Ibuprofen 09/14/2024 Medications Blood Pressure Monitoring (Blood Pressure Cuff) misc Use daily as prescribed 1 each 5 Active acetaminophen (Tylenol Extra Strength) 500 MG tablet Take 1 tablet (500 mg) by mouth every 6 (six) hours if needed for mild pain. 120 tablet 5 11/12/19 25 Active atorvastatin (Lipitor) 40 MG tablet Take 1 tablet (40 mg) by mouth at bedtime. 30 tablet 11 5 10/12/19 26 Active losartan (Cozaar) 25 MG tablet Take 1 tablet (25 mg) by mouth Once per day. 30 tablet 11 5 10/12/19 26 Active losartan (Cozaar) 50 MG tablet Take 1 tablet (50 mg) by mouth Once per day. 30 tablet 11 5 10/12/19 25 Discontinu ed(Side effects) Active Problems Problem Noted Date Diagnosed Date Microcytosis 10/12/2024 Primary hypertension 09/14/2024 Assessment & Plan (10/12/2024 2:53 PM EST): Uncontrolled today. Non compliant w/meds, today he is off medications for 2+ weeks. Start Losartan 25 mg and FU BP with RN in 2-3 weeks. Counseled re low salt diet. Advised to start exercise once he starts on Losartan and does not develop any side effects. Check home BP BIW and prn CP/CUBA/PENN Non smoking patient. FU with me in 3-4 months. Assessment & Plan (09/14/2024 9:51 AM EST): Uncontrolled, untreated. Will start Losartan 50 mg. Counseled re low salt diet/increase moderate physical activity. Check home BP BIW and prn CP/CUBA/PENN Non smoking patient. Follow up in 3-4 months and get labs. 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 Take Tylenol prn pain and follow up prn. Primary osteoarthritis of both knees 09/14/2024 Assessment & Plan (09/14/2024 9:57 AM EST): Take Tylenol prn. Advised weight reduction and gave information about strengthening exercises both knees and lower back. Achilles tendinosis of right ankle 09/14/2024 Assessment & Plan (09/14/2024 9:58 AM EST): Advised to use warm compresses and wear a padded heel support. Take Tylenol prn will follow up next visit, most likely has Osteophyte. Low back pain of over 3 months duration 09/14/19 Assessment & Plan (09/14/2024 9:58 AM EST): Advised weight reduction. Take Tylenol prn pain. I gave information about strengthening exercise of lowe back and follow up next visit. Normal oral exam 06/30/2024 Inadequate occlusion of dental religion 06/30 Encounters Date Type Department Care Team Description 10/12/2024 2:00 PM EST Office Visit [facility] [address] [place] [phone] Laure Linton MD Primary hypertension (Primary Dx); Low back pain of over 3 months duration; Microcytosis; Personal history of other specified conditions 10/12/2024 Travel 10/11/2024 Telephone [facility] [address] [place] [address] Laure Linton MD Chart prep 10/06/2024 Telephone [facility] [address] [place] [address] Laure Linton MD Appointment Request 09/14/2024 9:30 AM EST Office Visit [facility] [address] [place] [address] Laure Linton MD Primary hypertension (Primary Dx); Rotator cuff injury, left, sequela; Primary osteoarthritis of both knees; Achilles tendinosis of right ankle; Low back pain of over 3 months duration; Encounter for immunization 09/14/2024 Travel 09/13/2024 Telephone [facility] [address] [place] [address] Leena Jason MA Chart prep 09/08/2024 Patient Outreach [facility] [address] [place] [address] Laure Linton MD Pre-visit Planning (SDOH screening negative and tobacco screening negative) from Last 3 Months Immunizations Name Administration Dates Next Due Influenza injectable quadrivalent preservative f ree 07/27/2023 Influenza, seasonal, injectable, preservative fr ee 06/09/2024 Pfizer Covid-19 Vaccine 12+ 09/14/2024, 3 Family History Medical History Relation Name Comments cva Sister Relation Name Status Comments Sister Social History Tobacco Use Types Packs/Day Years [...] Orientation Straight 07/27/2023 12 :32 PM EST Last Filed Vital Signs Vital Sign Reading [...] Mass Index 33.98 10/12/2024 1:44 PM EST Plan of Treatment Upcoming Encounters Date Type Department Care Team (Late st Contact Info) Description 10/26/2024 10:00 AM EST Clinical Support [facility] [address] [place] [address] 12/29/2024 10:00 AM EDT Office Visit [facility] [address] [place] [address] Breanna Orozco Health Maintenance Due Date Last Done Comments CT Colonography 1959 Colonoscopy 1959 Colorectal Cancer Screening 1959 FIT DNA/Cologuard 1959 FIT 1959 FOBT 1959 Sigmoidoscopy 1959 Alcohol/Substance Use Screening 1971 Hepatitis C Screening 1977 DTaP/Tdap/Td Vaccines (1 - Tdap) 1978 Pneumococcal Vaccine: 50+ Years (1 of 1 - PCV) 2009 Zoster Vaccines (1 of 2) 2009 Dental X-Ray: Bitewings 10/06/2024 10/05/2023 Dental Prophylaxis 12/01/2024 06/02/2024, 10/05/2023 Dental Oral Exam 12/30/2024 06/30/2024, 10/05/2023 SDOH Screening 09/08/2025 09/08/2024 Depression Screening 09/14/2025 09/14/2024, 09/14/2024 Tobacco Screening 10/12/2025 10/12/2024 Dental X-Ray: Full Mouth 10/06/2026 10/05/2023 Lipid Panel 09/14/2029 09/14/2024 RSV Patients and Patients Aged 60 years or older (1 - 1-dose 75+ series) 2034 Influenza Vaccine Completed 06/09/2024, 07/27/2023 COVID-19 Vaccine Completed 09/14/2024, 07/27/2023 HIB Vaccines Aged Out No longer eligi ble based on patient's age to complete this topic HPV Vaccines Aged Out No longer eligi ble based on patient's age to complete this topic Hepatitis A Vaccines Aged Out No long er eligible based on patient's age to complete this topic Hepatitis B Vaccines Aged Out No long er eligible based on patient's age to complete this topic IPV Vaccines Aged Out No longer eligi ble based on patient's age to complete this topic Meningococcal Vaccine Aged Out No frank ej eligible based on patient's age to complete this topic RSV under 20 months Aged Out No longe r eligible based on patient's age to complete this topic Rotavirus Vaccines Aged Out No longer eligible based on patient's age to complete this topic Procedures Procedure Name Priority Date/Time Associated Diagnosis Comments XR KNEE 1-2 VIEWS LEFT Routine 09/14/2024 10:34 AM EST Primary osteoarthritis of both knees XR FOOT 3+ VIEWS RIGHT Routine 09/14/2024 10:34 AM EST Achilles tendinosis of right ankle XR KNEE 3 VIEWS RIGHT Routine 09/14/2024 10:34 AM EST Primary osteoarthritis of both knees XR LUMBAR SPINE 2-3 VIEWS Routine 09/14/2024 10:34 AM EST Low back pain of over 3 months duration CBC WITH AUTO DIFFERENTIAL Routine 09/14/2024 10:19 AM EST Primary hypertension Primary osteoarthritis of both knees Achilles tendinosis of right ankle TSH W/REFLEX TO FT4 Routine 09/14/2024 1 0:19 AM EST Primary hypertension LIPID PANEL WITH REFLEX TO DIRECT LDL Routine 09/14/2024 10:19 AM EST Primary hypertension COMPREHENSIVE METABOLIC PANEL Routine 09/14/2024 10:19 AM EST Primary hypertension ECG 12-LEAD Routine 09/14/2024 9:53 AM EST Primary hypertension PERIODIC ORAL EVALUATION - ESTABLISHED PATIENT Routine 06/30/2024 9:30 AM EDT Full PROPHYLAXIS - ADULT Routine 06/02/2024 8:00 AM EDT Dental plaque Dental calculus DIAGNOSTIC - DIAGNOSTIC IMAGING - INTRAORAL - COMPREHENSIVE SERIES OF RADIOGRAPHIC IMAGES Routine 10/05/2023 10:00 AM EST Excessive attrition of teeth, limited to enamel Dental calculus Loss of teeth due to cavities, class III edentulism from Last 3 Months or Most Recently Relevant to Health Maintenance Results * XR Foot 3+ Views Right (09/14/2024 10:34 AM EST) Anatomical Region Laterality Modality Lower Extremities, Foot Right [facility] 09/14/2024 10:3 4 AM EST Narrative 09/14/2024 11:57 AM EST ? [facility] ?[address] ?[place] [address] ?XRay Report ? Signed ? Patient: Winston,Jessee ?MR#: [id number] ? : 1960 ?Acct:[id number] ? Age/Sex: 64 / M ?ADM Date: /08/25 ? Loc: HO.HHCL ? Attending Dr: Laure Linton MD ? Ordering Physician: Laure Linton MD ?? Date of Service: 09/14/24 ?? Procedure(s): XR foot RT min 3V ?? Accession Number(s): [id number] ? cc: Laure Linton MD ? EXAMINATION: [...] ??Timothy Lyons MD ??09/14/2024 11:55 AM EST ? Dictated By: ?Timothy Lyons MD ? Signed By: ?<Electronically signed by Timothy Lyons MD in OV> ?09/14/24 1155 ? DD/ 1034 ? TD/TT: 09/14/24 1100 ? Weigher And Charger: ? Procedure Note Phillip, Sara - 09/15/2024 [place] [address] XRay Report Signed Patient: Raimundo Winston#: [id number] : 9Acct:[id number] Age/Sex: 64 / MADM Date: 09/14/24 Loc: HO.HHCL Attending Dr: Laure Linton MD Ordering Physician: Laure Linton MD Date of Service: 09/14/24 Procedure(s): XR foot RT min 3V Accession Number(s): [id number] cc: Laure Linton MD EXAMINATION: XR FOOT [...] Timothy Lyons MD 09/14/2024 11:55 AM EST RP Dictated By: Timothy Lyons MD Signed By: <Electronically signed by Timothy Lyons MD in OV> 09/14/24 1155 DD/ 1034 TD/TT: 09/14/24 1100 Weigher And Charger: Laure Linton MD IMG XR PROCEDURES Edited Result - Final * XR Knee 3 Views Right (09/14/2024 10:34 AM EST) Anatomical Region Laterality Modality Lower Extremities, Knee Right Radiogra phic Imaging 09/14/2024 10:3 4 AM EST Narrative 09/14/2024 11:56 AM EST ? [facility] ?[address] ?[place] [address] ?XRay Report ? Signed ? Patient: Jessee Winston ?MR#: [id number] ? : 1960 ?Acct:[id number] ? Age/Sex: 64 / M ?ADM Date: 09/14/24 ? Loc: HO.HHCL ? Attending Dr: Laure Linton MD ? Ordering Physician: Laure Linton MD ?? Date of Service: 09/14/24 ?? Procedure(s): XR knee RT 3V ?? Accession Number(s): [id number] ? cc: Laure Linton MD ? EXAMINATION: [...] MD ? Signed By: ?<Electronically signed by Timotyh Lyons MD in OV> ?09/14/24 1154 ? DD/ 1034 ? TD/TT: 09/14/24 1100 ? Weigher And Charger: ? Procedure Note Phillip, Image - 09/15/[address] [address] XRay Report Signed Patient: Jessee WinstonMR#: [id number] : 9Acct:[id number] Age/Sex: 64 / MADM Date: 09/14/24 Loc: .[facility] Attending Dr: Laure Linton MD Ordering Physician: Laure Linton MD Date of Service: 09/14/24 Procedure(s): XR knee RT 3V Accession Number(s): [id number] cc: Laure Linton MD EXAMINATION: XR KNEE [...] Timothy Lyons MD 09/14/2024 11:54 AM EST Dictated By: Timothy Lyons MD Signed By: <Electronically signed by Timothy Lyons MD in OV> 09/14/24 1154 DD/ 1034 TD/TT: 09/14/24 1100 Weigher And Charger: Laure Linton MD IMG XR PROCEDURES Edited Result - Final * XR Knee 1-2 Views Left (09/14/2024 10:34 AM EST) Anatomical Region Laterality Modality Lower Extremities, Knee Left Radiogra phic Imaging 09/14/2024 10:3 4 AM EST Narrative 09/14/2024 11:55 AM EST ? [facility] ?[address] ?[place] [address] ?XRay Report ? Signed ? Patient: Winston,Jessee ?MR#: [id number] ? : 1960 ?Acct:[id number] ? Age/Sex: 64 / M ?ADM Date: 09/14/24 ? Loc: HO.HHCL ? Attending Dr: Laure Linton MD ? Ordering Physician: aLure Linton MD ?? Date of Service: 09/14/24 ?? Procedure(s): XR knee LT 2V ?? Accession Number(s): [id number] ? cc: Laure Linton MD ? EXAMINATION: [...] ??Timothy Lyons MD ??09/14/2024 11:53 AM EST ?? RP ? Dictated By: ?Timothy Lyons MD ? Signed By: ?<Electronically signed by Timothy Lyons MD in OV> ?09/14/24 1153 ? DD/ 1034 ? TD/TT: 09/14/24 1100 ? Weigher And Charger: ? Procedure Note Sara Fisher - 09/15/[address] [address] XRay Report Signed Patient: Jessee WinstonMR#: [id number] : 9Acct:[id number] Age/Sex: 64 / MADM Date: 09/14/24 Loc: HO.HHCL Attending Dr: Laure Linton MD Ordering Physician: Laure Linton MD Date of Service: 09/14/24 Procedure(s): XR knee LT 2V Accession Number(s): [id number] cc: Laure Linton MD EXAMINATION: XR KNEE [...] 09/14/24 1153 DD/ 1034 TD/TT: 09/14/24 1100 Weigher And Charger: Laure Linton MD IMG XR PROCEDURES Edited Result - Final * XR Lumbar Spine 2-3 Views (09/14/2024 10:34 AM EST) Anatomical Region Laterality Modality Spine, L-spine Radiographic Joi ging 09/14/2024 10:3 4 AM EST Narrative 09/14/2024 11:59 AM EST ? [facility] ?[address] ?[place] [address] ?XRay Report ? Signed ? Patient: Winston,Jessee ?MR#: [id number] ? : 1960 ?Acct:[id number] ? Age/Sex: 64 / M ?ADM Date: 01/08/25 ? Loc: HO.HHCL ? Attending Dr: Laure Linton MD ? Ordering Physician: Laure Linton MD ?? Date of Service: 09/14/24 ?? Procedure(s): XR lumbar spine 2-3V ?? Accession Number(s): [id number] ? cc: Laure Linton MD ? EXAMINATION: [...] ??Timothy Lyons MD ??09/14/2024 11:56 AM EST ? Dictated By: ?Timothy Lyons MD ? Signed By: ?<Electronically signed by Timothy Lyons MD in OV> ?09/14/24 1156 ? DD/ 1034 ? TD/TT: 09/14/24 1100 ? Weigher And Charger: ? Procedure Note Sara Fisher - 09/15/2024 [place] [address] XRay Report Signed Patient: Raimundo Winston#: [id number] : 9Acct:[id number] Age/Sex: 64 / MADM Date: 09/14/24 Loc: HO.HHCL Attending Dr: Laure Linton MD Ordering Physician: Laure Linton MD Date of Service: 09/14/24 Procedure(s): XR lumbar spine 2-3V Accession Number(s): [id number] cc: Larue Linton MD EXAMINATION: XR LUMBAR SPINE 2-3 [...] 09/14/24 1156 DD/ 1034 TD/TT: 09/14/24 1100 Weigher And Charger: Laure Linton MD IMG XR PROCEDURES Edited Result - Final * TSH with Reflex to Free T4 (09/14/2024 10:19 AM EST) TSH reflex Free T4 2.87 0.32 - 4.0 uIU/mL [facility] Blood 09/14/2024 10:1 9 AM EST 09/14/2024 11:07 AM EST us Laure Linton MD LAB BLOOD ORDERABLES Fin al Result [facility] [address] [place] [phone] * (ABNORMAL) Lipid Panel with Reflex to Direct LDL (09/14/2024 10:19 AM EST) Triglycerides 71 <150 mg/dL [facility] Comment:Desirable Triglyceri de: less than 150 mg/dLBorderline High Triglyceride 150-199 mg/dLHigh Triglyceride: 200-499 mg/dLVery High Triglyceride: greater than or equal to 5OO mg/dL Cholesterol 185 <200 mg/dL [facility] Comment:Desirable Cholestero l: less than 200 mg/dLBorderline High Cholesterol: 200-239 mg/dLHigh Cholesterol: greater than 239 mg/dL LDL Cholesterol Calculated 127(H) <100 mg/dL [facility] Comment:Desirable LDL: less than 100 mg/dLNear Optimal/Above Optimal LDL: 110- 129 mg/dLBorderline High LDL: 130-159 mg/dLHigh LDL: 160-189 mg/dLVery High LDL: greater than or equal to 190 mg/dL HDL Cholesterol 44 >40 mg/dL [facility] Comment:Desirable HDL: great er than 40 mg/dL Note: This HDL assay may give artificially low results in patients with liver disease. Blood 09/14/2024 10:1 9 AM EST 09/14/2024 11:07 AM EST us Laure Linton MD LAB BLOOD ORDERABLES Fin al Result [facility] [address] [place] [address] [phone] * (ABNORMAL) CBC auto differential (09/14/2024 10:19 AM EST) White Blood Count 6.6 4.8 - 10.8 X10*3/uL [facility] Red Blood Count 5.50 4.60 - 5.80 X10*6/uL [facility] Hemoglobin 14.3 14.0 - 18.0 g/dl [facility] Hematocrit 43.6 42.0 - 52.0 % [facility] Mean Corpuscular Volume 79.3(L) 80.0 - 98.0 fL [facility] Mean Corpuscular Hemoglobin 26.0(L) 27.0 - 33.0 pg [facility] Mean Corpuscular HGB Conc 32.8 31.0 - 36.0 g/dl [facility] Red Cell Distribution Width 14.7 11.0 - 16.0 % [facility] Platelet Count 325 160 - 400 X10*3/uL [facility] Mean Platelet Volume 9.5 9.4 - 12.4 fL [facility] Neutrophils Percent Auto 65.3 45 - 73 % [facility] Imm Gran Pct Auto 0.5(H) 0.0 - 0.4 % [facility] Lymphocytes Percent Auto 19.9(L) 20 - 40 % [facility] Monocytes Percent Auto 9.6 2 - 11 % [facility] Eosinophils Percent Auto 3.6 0 - 4 % [facility] Basophils Percent Auto 1.1 0 - 2 % [facility] NRBC Pct Auto 0.0 0.0 - 0.2 /100WBC [facility] Neutrophils Absolute Auto 4.3 2.0 - 8.3 x10*3/uL [facility] Imm Gran Abs Auto 0.03 0.00 - 0.03 X10*3/uL [facility] Lymphocytes Absolute Auto 1.3 1.2 - 4.9 X10*3/uL [facility] Monocytes Absolute Auto 0.6 0.1 - 1.2 X10*3/uL [facility] Eosinophils Absolute Auto 0.2 0.0 - 0.4 X10*3/uL [facility] Basophils Absolute Auto 0.1 0.0 - 0.2 X10*3/uL [facility] NRBC Abs Auto 0.000 0.0 - 0.012 X10*3/uL [facility] Blood Venous blood specimen / Unknown 09/14/2024 10:19 AM EST 09/14/2024 11:07 AM EST us Laure Linton MD LAB BLOOD ORDERABLES Fin al Result [facility] [address] [place] [address] [phone] * (ABNORMAL) Comprehensive Metabolic Panel (09/14/2024 10:19 AM EST) Sodium 139 135 - 145 mmol/L [facility] Potassium 4.0 3.3 - 5.1 mmol/L [facility] Chloride 107 96 - 108 mmol/L [facility] Carbon Dioxide 25 22 - 29 mmol/L [facility] Anion Gap 11(L) 12 - 20 [facility] Urea Nitrogen (BUN) 15 9 - 16 mg/dL [facility] Creatinine, Serum 0.82 0.5 - 1.4 mg/dL [facility] Estimated Glomerular Filt Rate >60 [facility] Comment:Chronic Kidney Disea se: Estimated GFR < 60 mL/min/[id number] Kidney Disease: Estimated GFR < 15 mL/min/1.73m2 Glucose 93 60 - 115 mg/dL [facility] Calcium 9.3 8.4 - 10.2 mg/dL [facility] Bilirubin, Total 0.6 0.0 - 1.0 mg/dL [facility] Aspartate Amino Transferase 19 5 - 37 U/L [facility] Alanine Aminotransferase 23 0 - 40 U/L [facility] Total Protein 7.5 6.5 - 8.0 g/dL [facility] Albumin Level 4.3 3.5 - 5.0 g/dL [facility] Alkaline Phosphatase 92 39 - 117 U/L [facility] Blood Venous blood specimen / Unknown 09/14/2024 10:19 AM EST 09/14/2024 11:07 AM EST us Laure Linton MD LAB BLOOD ORDERABLES Fin al Result [facility] [address] [place] [phone] * ECG 12 lead (09/14/2024 9:53 AM EST) Narrative Laure Linton MD - 09/14/2024 9:53 AM EST NSR@72 bpm. Left axis deviation. Inverted T waves on lat leads (?LVH). Here's a Q on aVF ??(not on contiguous lead) likely related to LV overload (?LVH?) us Laure Linton MD ECG ORDERABLES Final Re sult from Last 3 Months Insurance [facility] STANDARD MEDICARE DENTAL-[facility] MEDICAID STAND ADULT Care Teams Office Runner Relationship Specialty Start Date End Date Laure Linton MD [address] [place] [phone] PCP - General Internal Medicine 09/14/24
--- OUTSIDE RECORDS SUMMARY | 2024-10-12 16:10 | XMS_ITS | Encounter Summary ---
Author Organization [employer] Address [address] [facility] [address] [place] [address] Care Team Providers Care Caterpillar Driver Name Role Phone Laure Linton MD Primary Care Provider + Reason for Visit * Reason Onset Date Comments Chart prep 10/11/2024 Encounter Details Date Type Department Care Team (Late st Contact Info) Description 10/11/2024 Telephone [facility] MEDICINE [address] [place], [place] [phone] Laure Linton MD [address] [place], [place] [phone] Chart prep Social History Tobacco Use Types Packs/Day Years [...] PM EST documented as of this encounter Miscellaneous Notes * Telephone Encounter - Leena Jason MA - 10/11/2024 1:50 PM EST Chart Prep Labs: done Images: done Vaccines due: yes Referrals: pending appt Screenings: colonoscopy Overdue care gaps: Up to date documented in this encounter Plan of Treatment Upcoming Encounters Date Type Department Care Team (Late st Contact Info) Description 10/26/2024 10:00 AM EST Clinical Support [facility] MEDICINE [address] [place] [address] 12/29/2024 10:00 AM EDT Office Visit [facility] ADULT DENTAL [address] [place] [address] Breanna Orozco documented as of this encounter Visit Diagnoses Not on filedocumented in this encounter Care Teams Caterpillar Driver Relationship Specialty Start Date End Date Laure Linton MD [address] [place] [address] PCP - General Internal Medicine 09/14/24 documented as of this encounter
--- OUTSIDE RECORDS SUMMARY | 2024-10-12 16:10 | XMS_ITS | Encounter Summary ---
Author Organization [employer] Address 75 [facility] 7t [place] [address] Care Team Providers Care Ballpoint Pen Assembly Machine Operator Name Role Phone Unavailable Primary Care Provider Unavailabl e Reason for Visit * Reason Onset Date Comments Chart prep 09/13/2024 Encounter Details Date Type Department Care Team (Late st Contact Info) Description 09/13/2024 Telephone [facility] MEDICINE [address] [place] [address] Leena Jason MA Chart prep Social History Tobacco Use Types Packs/Day Years Used Date Smoking Tobacco: Former Cigarettes Smokeless Tobacco: Never Alcohol Use Standard Drinks/Week Comments Not Currently 0 (1 standard drink = 0.6 oz pur e alcohol) Housing Stability Answer Date Recorded What is [...] Telephone Encounter - Leena Jason MA - 09/13/2024 1:49 PM EST Chart Prep Labs: not applicable Images: not applicable Vaccines due: yes Referrals: N/A Screenings: colonoscopy Overdue care gaps: PHQ-9 documented in this encounter Plan of Treatment Upcoming Encounters Date Type Department Care Team (Late st Contact Info) Description 10/26/2024 10:00 AM EST Clinical Support [facility] MEDICINE [address] [place] [address] 12/29/2024 10:00 AM EDT Office Visit [facility] ADULT DENTAL [address] [place] [address] Breanna Orozco documented as of this encounter Visit Diagnoses Not on filedocumented in this encounter
--- OUTSIDE RECORDS SUMMARY | 2024-10-12 16:10 | XMS_ITS | Encounter Summary ---
Author Organization [employer] Address 75 [facility] 7t [place] [address] Care Team Providers Care Vessel Engineer Name Role Phone Laure Linton MD Primary Care Provider + Encounter Details Date Type Department Care Team (Latest Contact Info) Description 09/14/2024 Travel Social History Tobacco Use Types Packs/Day Years [...] PM EST documented as of this encounter Plan of Treatment Upcoming Encounters Date Type Department Care Team (Late st Contact Info) Description 10/26/2024 10:00 AM EST Clinical Support [facility] MEDICINE [address] [place] [address] 12/29/2024 10:00 AM EDT Office Visit [facility] ADULT DENTAL [address] [place] [address] Breanna Orozco documented as of this encounter Visit Diagnoses Not on filedocumented in this encounter Care Teams Vessel Engineer Relationship Specialty Start Date End Date Laure Linton MD [address] [place] [address] PCP - General Internal Medicine 09/14/24 documented as of this encounter
--- OUTSIDE RECORDS SUMMARY | 2024-10-12 16:10 | XMS_ITS | Encounter Summary ---
Author Organization [employer] Address [address] [facility] [address] [place] [address] Care Team Providers Care Special Services Director Name Role Phone Laure Linton MD Primary Care Provider + Reason for Visit * Reason Onset Date Comments Appointment Request 10/06/2024 Encounter Details Date Type Department Care Team (Late st Contact Info) Description 10/06/2024 Telephone [facility] MEDICINE [address] [place], [place] [phone] Laure Linton MD [address] [place], [place] [phone] Appointment Request Social History Tobacco Use Types Packs/Day Years [...] Telephone Encounter - Leena Jason MA - 10/06/2024 2:34 PM EST Tc to pt to r/s appt from 10/12/24 to the afternoon as PCP won't be in that morning. Appt has been rescheduled for 10/12/24 at 2:00 pm. documented in this encounter Plan of Treatment Upcoming Encounters Date Type Department Care Team (Late st Contact Info) Description 10/26/2024 10:00 AM EST Clinical Support [facility] MEDICINE [address] [place] [address] 12/29/2024 10:00 AM EDT Office Visit [facility] ADULT DENTAL [address] [place] [address] Breanna Orozco documented as of this encounter Visit Diagnoses Not on filedocumented in this encounter Care Teams Special Services Director Relationship Specialty Start Date End Date Laure Linton MD [address] [place] [address] PCP - General Internal Medicine 09/14/24 documented as of this encounter
--- OUTSIDE RECORDS SUMMARY | 2024-10-12 16:10 | XMS_ITS | Encounter Summary ---
Author Organization [employer] Address 75 [facility] 7t [place] [address] Care Team Providers Care Distribution Associate Name Role Phone Laure Linton MD Primary Care Provider + Encounter Details Date Type Department Care Team (Latest Contact Info) Description 10/12/2024 Travel Social History Tobacco Use Types Packs/Day [...] AM EST Clinical Support [facility] MEDICINE [address] [place] [address] 12/29/2024 10:00 AM EDT Office Visit [facility] ADULT DENTAL 230 [place] [address] Breanna Orozco documented as of this encounter Visit Diagnoses Not on filedocumented in this encounter Care Teams Distribution Associate Relationship Specialty Start Date End Date Laure Linton MD [address] [place] [address] PCP - General Internal Medicine 09/14/24 documented as of this encounter
--- OUTSIDE RECORDS SUMMARY | 2024-10-12 16:10 | XMS_ITS | Encounter Summary ---
Author Organization [employer] Address 75 [facility] [address] [place] [address] Care Team Providers Care Pci Security Consultant Name Role Phone Laure Linton MD Primary Care Provider + Reason for Visit * Reason Onset Date Comments NEW PATIENT 09/29/2023 Encounter Details Date Type Department Care Team (Late st Contact Info) Description 09/29/2023 Telephone [facility] MEDICINE [address] [place] [phone] Riaz Alexander MD [address] [place], [place] [phone] NEW PATIENT Social History Tobacco Use Types Packs/Day Years Used Date Smoking Tobacco: Never Assessed Sex and Gender Information Value Date Recorded Sex Assigned at Male 07/27/2023 12:32 PM EST Legal Sex Male 11:52 AM EDT Gender Identity Male 07/27/2023 12:32 PM EST Sexual Orientation Straight 07/27/2023 12 :32 PM EST documented as of this encounter Miscellaneous Notes * Telephone Encounter - Rodríguez Crum - 09/29/2023 4:48 PM EST Tc from pt requesting a new patient appt. Pt stated he has multiple health issues and can't barely walk. Advised Walk in Hours. Please contact pt @ [phone] documented in this encounter Plan of Treatment Upcoming Encounters Date Type Department Care Team (Late st Contact Info) Description 10/26/2024 10:00 AM EST Clinical Support [facility] MEDICINE [address] [place] [phone] 12/29/2024 10:00 AM EDT Office Visit [facility] ADULT DENTAL [address] [place] [address] Breanna Orozco documented as of this encounter Visit Diagnoses Not on filedocumented in this encounter Care Teams Pci Security Consultant Relationship Specialty Start Date End Date Laure Linton MD 230 [place] [address] PCP - General Internal Medicine 09/14/24 documented as of this encounter
[2024-10-12 17:12] LABS: Ferritin 129 ng/mL (20-250)
[2024-10-13 07:30] LABS: HBS Num1 0.25 mIU/mL (0-7.99); HBc Num1 0.17 S/CO (0.00-0.79); HBsAGNum1 0.39 S/CO (0.00-0.99); Hepatitis A Antibody IgM 0.13 Index (0-0.79); Hepatitis B Core Antibody Nonreactive (Nonreactive); Hepatitis B Surface Antigen Negative (Negative); ~HepC Num1 0.09 S/CO (0.00-0.79); ~Hepatitis A Antibody IgM Nonreactive (Nonreactive); ~Hepatitis B Surface Antibody NONREACTIVE (Nonreactive); ~Hepatitis C Antibody Nonreactive (Nonreactive)
[2024-10-14 14:53] LABS: Hematocrit 46.2 % (38.5-50.0); Hemoglobin 14.5 g/dL (13.2-17.1); MCH 26.2 pg (27.0-33.0); MCV 83.5 fL (80.0-100.0); RBC 5.53 Million/uL (4.20-5.80); RDW 13.6 % (11.0-15.0)
== END 2024-10-12 15:08 | disposition home or self-care (01) ==
LOC: HO.HHCL 15:07
PROVIDERS: Visit Provider Internal Medicine
DX: R71.8 Other abnormality of red blood cells (principal); Z87.898 Personal history of other specified conditions; Z11.59 Encounter for screening for other viral diseases; Z72.89 Other problems related to lifestyle
CPT/HCPCS: 36415; 82728; 83020; 85014; 85018; 85041; 86704; 86706; 86709; 86803; 87340

== ENCOUNTER 2025-01-02 09:41 | Outpatient (RCR) | payer MEDICARE, MEDICAID, SELFPAY ==
--- NOTE | 2025-02-06 09:05 | MHC.PT.DC ---
[facility] [place] Office [place] Office [place] Office [address] Shawn Copeland [address] [phone] F: [phone] F: [phone] F: [phone] F: [phone] Physical Therapy Discharge Report Diagnosis: LOW BACK PAIN Date of Surgery: Date of Evaluation: 01/02/25 Date of Discharge: Treatments to Date: 1 Cancellations to Date: 0 No Shows to Date: 0 Discharge Status: Visit Non-compliance Discharge Summary: Pt attended initial IE only, no showed for multiple appointments and is DCed for non-compliance. Electronically signed by: Fidelina Gilbert PT DPT Please sign and return to therapist. Thank you for your referral.
== END 2025-02-06 09:04 | disposition home or self-care (01) ==
LOC: HO.PT 09:41
PROVIDERS: PCP Internal Medicine; Visit Provider Internal Medicine
DX: M54.50 Low back pain, unspecified (principal)
CPT/HCPCS: 97110; 97161; 97535

== ENCOUNTER 2025-01-18 08:05 | Outpatient (REF) | payer MEDICARE, MEDICAID, SELFPAY ==
--- OUTSIDE RECORDS SUMMARY | 2025-01-18 08:08 | XMS_ITS | Encounter Summary ---
Author Organization [employer] Address [address] [facility] [address] [place] [address] Care Team Providers Care Msws Name Role Phone Laure Linton MD Primary Care Provider + Reason for Visit * Reason Onset Date Comments NEW PATIENT 09/29/2023 Encounter Details Date Type Department Care Team (Late st Contact Info) Description 09/29/2023 Telephone [facility] MEDICINE 230 [place], [place] [phone] Riaz Alexander MD 230 [place], [place] [phone] NEW PATIENT Social History Tobacco Use Types [...] Walk in Hours. Please contact pt @ [phone] documented in this encounter Plan of Treatment Upcoming Encounters Date Type Department Care Team (Late st Contact Info) Description 01/23/2025 9:00 AM EDT Office Visit [facility] ADULT DENTAL [address] [place], [place] [phone] Breanna Orozco documented as of this encounter Visit Diagnoses Not on filedocumented in this encounter Care Teams Msws Relationship Specialty Start Date End Date Laure Linton MD [address] [place] [phone] PCP - General Internal Medicine 09/14/24 documented as of this encounter
--- OUTSIDE RECORDS SUMMARY | 2025-01-18 08:08 | XMS_ITS | Clinical Summary ---
Author Organization [employer] Address 75 [facility] 7t [place] [address] Care Team Providers Care Regional Account Manager Name Role Phone Laure Linton MD Primary Care Provider + Allergies Active Allergy Reactions Criticality Noted Date Comments Ibuprofen 09/14/2024 Medications Blood Pressure Monitoring (Blood Pressure Cuff) misc Use daily as prescribed 1 each 5 Active atorvastatin (Lipitor) 40 MG tablet Take 1 tablet (40 mg) by mouth at bedtime. 30 tablet 11 5 10/12/19 26 Active losartan (Cozaar) 50 MG tablet Take 1 tablet (50 mg) by mouth Once per day. 30 tablet 11 5 10/26/19 26 Active Acetaminophen Extra Strength 500 MG tablet Take 1 tablet by mouth every 6 (six) hours if needed. 5 Active Active Problems Problem Noted Date Diagnosed Date Pure hypercholesterolemia 01/11/2025 Assessment & Plan (01/11/2025 9:44 AM EDT): LDL not at goal, he will continue same dose of atorvastatin and fu lipids in 3- 4m Recommended moderate amount of exercise and increase consumption of fruit, vegetables, fish and high fiber foods. Should decrease consumption of highly saturated fats or trans fats. Screening for colorectal cancer 01/11/2025 Assessment & Plan (01/11/2025 9:49 AM EDT): Referred on 10/2024, referral information given today so that he can fu with GI. Microcytosis 10/12/2024 Assessment & Plan (10/12/2024 5:07 PM EST): Order Ferritin studies and Hemoglobin electrophoresis. I gave him information and advised him to start an iron rich diet. Primary hypertension 09/14/2024 Assessment & Plan (01/11/2025 9:43 AM EDT): Controlled. Compliant w/meds Continue losartan same dose Counseled re low salt diet/increase moderate physical activity. Check home BP BIW and prn CP/CUBA/PENN Non smoking patient. Order labs and fu w me in 3-4m Assessment & Plan (10/12/2024 5:03 PM EST): Uncontrolled today. Non compliant w/meds, today he is off medications for 2+ weeks. Start Losartan 25 mg and FU BP with RN in 2-3 weeks. Counseled re low salt diet. Advised to start exercise once he starts on Losartan and does not develop any side effects. Check home BP BIW and prn CP/CUBA/PENN FU with me in 3-4 months. Assessment & Plan (09/14/2024 9:51 AM EST): Uncontrolled, untreated. Will start Losartan 50 mg. Counseled re low salt diet/increase moderate physical activity. Check home BP BIW and prn CP/CUBA/PENN Non smoking patient. Follow up in 3-4 months and get labs. Rotator cuff injury, left, sequela 09/14/2024 Assessment & Plan (01/11/2025 9:45 AM EDT): Didn't fu with PT, I advised him to go to the GYM and fu with me PRN. Continue tylenol prn. Assessment & Plan (09/14/2024 9:52 AM EST): [...] 3 months duration 09/14/19 Assessment & Plan (10/12/2024 5:04 PM EST): Secondary to OA. Advised to start PT. I gave him information regarding acupuncture. Take Tylenol PRN pain. Assessment & Plan (09/14/2024 9:58 AM EST): Advised weight reduction. Take Tylenol prn pain. I gave information about strengthening exercise of lowe back and follow up next visit. Normal oral exam 06/30/2024 Inadequate occlusion of dental scientology 06/30 Encounters Date Type Department Care Team Description 01/11/2025 9:15 AM EDT Office Visit [facility] MEDICINE [address] [place] [phone] Laure Linton MD Primary hypertension (Primary Dx); Pure hypercholesterolemia; Rotator cuff injury, left, sequela; Screening for colorectal cancer 01/11/2025 Travel 01/10/2025 Telephone [facility] MEDICINE [address] [place] [address] Laure Linton MD Chart Prep 01/09/2025 Outside Procedure [facility] OPTOMETRY [address] [place] [address] Segundo, Lisa, OD Presbyopia (Primary Dx) 01/06/2025 1:30 PM EDT Office Visit [facility] OPTOMETRY [address] [place] [address] Segundo, Lisa, OD Hypermetropia, bilateral (Primary Dx) 01/04/2025 Patient Outreach [facility] MEDICINE [address] [place], [place] [phone] Laure Linton MD Pre-visit Planning (SDOH screening completed on 09/08/24) 11/22/2024 2:30 PM EDT Office Visit [facility] OPTOMETRY [address] [place], [place] [phone] Mary Anne Gupta, OD Hypermetropia, bilateral (Primary Dx) 11/22/2024 Travel 10/27/2024 Telephone [facility] [address] [facility] [place] [address] Laure Linton MD May recall 10/26/2024 10:00 AM EST Clinical Support [facility] MEDICINE [address] [facility] [place] [address] Josi Santiago, NANCY Primary hypertension 10/26/2024 Orders Only [facility] MEDICINE [address] [facility] [place] [address] Laure Linton MD 10/26/2024 Travel from Last 3 Months Immunizations Immunization Administration Dates Next Due Influenza injectable quadrivalent [...] = 0.6 oz pur e alcohol) oca Depression Answer Date Recorded Patient Health Questionnaire-9 Score 0 01/11/2025 Patient Health Questionnaire-9 Score 0 01/11/2025 Last PHQ-9: Questionnaire Data Not on file 0 01/11/2025 Housing Stability Answer Date Recorded What is [...] t he electric, gas, oil or water [place] threatened to shut off services in your home? No 09/08/2024 Depression Answer Date Recorded Patient Health Questionnaire-2 Score 0 01/11/2025 Internet Access Answer Date Recorded Internet Access [...] Sign Reading Time Taken Comments Blood Pressure 133/86 01/11/2025 9:04 AM EDT Pulse 78 01/11/2025 9:04 AM EDT Temperature 36.3 ??C (97.4 ??F) 01/11/2025 9:04 AM ED T Respiratory Rate 20 01/11/2025 9:04 AM EDT Oxygen Saturation 98% 01/11/2025 9:04 AM EDT Inhaled Oxygen Concentration - - Weight 91.2 kg (201 lb) 01/11/2025 9:04 AM EDT Height 167.6 cm (5' 6 ) 01/11/2025 9:04 AM EDT Body Mass Index 32.44 01/11/2025 9:04 AM EDT Plan of Treatment Upcoming Encounters Date Type Department Care Team (Late st Contact Info) Description 01/23/2025 9:00 AM EDT Office Visit [facility] ADULT DENTAL [address] [place] [address] Breanna Orozco Health Maintenance Due Date Last Done Comments CT Colonography 1959 Colonoscopy 1959 Colorectal Cancer Screening 1959 FIT DNA/Cologuard 1959 FIT 1959 FOBT 1959 Sigmoidoscopy 1959 DTaP/Tdap/Td Vaccines (1 - Tdap) 1978 Pneumococcal Vaccine: 50+ Years (1 of 1 - PCV) 2009 Zoster Vaccines (1 of 2) 2009 Dental X-Ray: Bitewings 10/06/2024 10/05/2023 Dental Prophylaxis 12/01/2024 06/02/2024, 10/05/2023 Dental Oral Exam 12/30/2024 06/30/2024, 10/05/2023 COVID-19 Vaccine (3 - 2023-2 5 season) 2025 09/14/2024, 07/27/2023 SDOH Screening 09/08/2025 09/08/2024 Alcohol/Substance Use Screening 01/11/2026 01/11/2025 Depression Screening 01/11/2026 01/11/2025, 01/11/2025 Tobacco Screening 01/11/2026 01/11/2025 Dental X-Ray: Full Mouth 10/06/2026 10/05/2023 Lipid Panel 09/14/2029 09/14/2024 RSV Patients and Patients Aged 60 years or older (1 - 1-dose 75+ series) 2034 Influenza Vaccine Completed 06/09/2024, 07/27/2023 Hepatitis C Screening Completed 10/12/2024 HIB Vaccines Aged Out No longer eligi [...] patient's age to complete this topic Meningococcal B Vaccine Aged Out No l onger eligible based on patient's age to complete [...] Procedure Name Priority Date/Time Associated Diagnosis Comments HEPATITIS PANEL, GENERAL Routine 10/12/2024 3:11 PM EST Microcytosis Personal history of other specified conditions LIPID PANEL WITH REFLEX TO DIRECT LDL Routine 09/14/2024 10:19 AM EST Primary hypertension PERIODIC ORAL EVALUATION - ESTABLISHED PATIENT Routine 06/30/2024 9:30 AM EDT Full PROPHYLAXIS - ADULT Routine 06/02/2024 8:00 AM EDT Dental plaque Dental calculus INTRAORAL - COMPLETE SERIES OF RADIOGRAPHIC IMAGES Routine 10/05/2023 10:00 AM EST Excessive attrition of teeth, limited to enamel Dental calculus Loss of teeth due to cavities, class III edentulism from Last 3 Months or Most Recently Relevant to Health Maintenance Results * Hepatitis Panel, General (10/12/2024 3:11 PM EST) Hepatitis A IgM Nonreactive Nonreactive [facility] Comment:IgM antibodies to CUBA V not detected; does not exclude earlyacute or recovered HAV infection. ~Hepatitis B Surface Antibody NONREACTIVE Nonreactive [facility] Comment:Nonreactive: < 8.00 mIU/mL Hepatitis B Core Antibody Nonreactive Nonreactive [facility] Hepatitis C Antibody Nonreactive Nonreactive [facility] Comment:Antibodies to HCV no t detected; does not exclude early acuteHCV infection. Hepatitis B Surface Ag Negative Negative [facility] Blood 10/12/2024 3:11 PM EST 10/12/2024 4:20 PM EST us Laure Linton MD LAB BLOOD ORDERABLES Fin al Result Performing Organization Address City/State/[facility] Co de Phone Number [facility] [address] [place] [phone] * (ABNORMAL) Lipid Panel with Reflex to Direct LDL (09/14/2024 10:19 AM EST) Triglycerides 71 <150 mg/dL [facility] Comment:Desirable Triglyceri de: less than 150 mg/dLBorderline High Triglyceride 150-199 mg/dLHigh Triglyceride: 200-499 mg/dLVery High Triglyceride: greater than or equal to 5OO mg/dL Cholesterol 185 <200 mg/dL [facility] Comment:Desirable Cholestero l: less than 200 mg/dLBorderline High Cholesterol: 200-239 mg/dLHigh Cholesterol: greater than 239 mg/dL LDL Cholesterol Calculated 127(H) <100 mg/dL [facility] Comment:Desirable LDL: less than 100 mg/dLNear Optimal/Above Optimal LDL: 110- 129 mg/dLBorderline High LDL: 130-159 mg/dLHigh LDL: 160-189 mg/dLVery High LDL: greater than or equal to 190 mg/dL HDL Cholesterol 44 >40 mg/dL [facility] Comment:Desirable HDL: great er than 40 mg/dL Note: This HDL assay may give artificially low results in patients with liver disease. Blood 09/14/2024 10:1 9 AM EST 09/14/2024 11:07 AM EST us Laure Linton MD LAB BLOOD ORDERABLES Fin al Result [facility] [address] [place] [address] [phone] from Last 3 Months or Most Recently Relevant to Health Maintenance Insurance [facility] STANDARD MEDICARE [place] STAND AD[place] Care Teams Regional Account Manager Relationship Specialty Start Date End Date Laure Linton MD [address] [place] [phone] PCP - General Internal Medicine 09/14/24
== END 2025-01-18 08:06 | disposition home or self-care (01) ==
LOC: HO.HHCL 08:05
PROVIDERS: Visit Provider Internal Medicine
DX: Z13.89 Encounter for screening for other disorder (principal)

== ENCOUNTER 2025-05-23 08:14 | Outpatient (REF) | payer MEDICARE, MEDICAID, SELFPAY ==
--- OUTSIDE RECORDS SUMMARY | 2025-05-23 09:31 | XMS_ITS | Encounter Summary ---
Author Organization [employer] Address 75 [facility] 7t [place] [address] Care Team Providers Care Ad Copy Writer Name Role Phone Laure Linton MD Primary Care Provider + Encounter Details Date Type Department Care Team (Latest Contact Info) Description 05/19/2025 Outside Procedure [facility] OPTOMETRY [address] [place], [place] [phone] Segundo, Lisa, OD [address] [place], [place] [phone] Presbyopia (Primary Dx) Social History Tobacco Use Types Packs/Day Years [...] PM EST documented as of this encounter Progress Notes * Lisa Raymond OD - 05/19/2025 12:10 PM EDT MH glasses were dispensed, 2 of 2. documented in this encounter Plan of Treatment Upcoming Encounters Date Type Department Care Team (Late st Contact Info) Description 05/26/2025 10:30 AM EDT Telemedicine [facility] MEDICINE [address] [place] [address] Laure Linton MD [address] [place] [address] 08/21/2025 8:00 AM EST Office Visit [facility] ADULT DENTAL [address] [place] [address] Breanna Orozco documented as of this encounter Visit Diagnoses Diagnosis Presbyopia- Primary documented in this encounter Additional Health Concerns Assessment Noted Time PHQ-9 Depression Total Score: 0 01/12/20 9:12 AM EDT documented as of this encounter Care Teams Ad Copy Writer Relationship Specialty Start Date End Date Laure Linton MD [address] [place] [address] PCP - General Internal Medicine 09/14/24 documented as of this encounter
--- OUTSIDE RECORDS SUMMARY | 2025-05-23 09:31 | XMS_ITS | Clinical Summary ---
Author Organization [employer] Address [address] [facility] [address] [place] [address] Care Team Providers Care Store Clerk Cashier Name Role Phone Laure Linton MD Primary [...] Strength 500 MG tablet Take 1 tablet (500 mg) by mouth every 6 (six) hours if needed (for mild pain). 60 tablet 5 Active Active Problems Problem Noted Date [...] activity. Check home BP BIW and prn CP/CBUA/[facility] Non smoking patient. Follow up in 3-4 [...] pain of over 3 months duration 09/14/19 25 Assessment & Plan (10/12/2024 5:04 PM EST): Secondary to OA. Advised to start PT. I gave him information regarding acupuncture. Take Tylenol PRN pain. Assessment & Plan (09/14/2024 9:58 AM EST): Advised weight reduction. Take Tylenol prn pain. I gave information about strengthening exercise of lowe back and follow up next visit. Normal oral exam 06/30/2024 Inadequate occlusion of dental yazdanism 06/30 Encounters Date Type Department Care Team Description 05/19/2025 Outside Procedure [facility] OPTOMETRY [address] [place] [address] Segundo, Lisa, OD Presbyopia (Primary Dx) 04/28/2025 9:30 AM EDT Office Visit [facility] OPT[facility] [address] [place] [address] Segundo, Lisa, OD Hypermetropia, bilateral (Primary Dx) 04/07/2025 11:30 AM EDT Office Visit [facility] OPTOMETRY [address] [place] [address] Tarka, Mary Anne, OD Presbyopia (Primary Dx) 03/09/2025 Telephone [facility] MEDICINE [address] [place] [address] Laure Linton MD May recall from Last 3 Months Immunizations Immunization Administration [...] your housing situation today? I have ravinder monteil 09/08/[address] you li [...] Sign Reading Time Taken Comments Blood Pressure 138/84 01/23/2025 9:12 AM EDT Pulse 78 01/11/2025 9:04 AM EDT Temperature 36.3 C (97.4 F) 01/11/2025 9:04 AM EDT Respiratory Rate 20 01/11/2025 9:04 AM EDT [...] Info) Description 05/26/2025 10:30 AM EDT Telemedicine [facility] MEDICINE [address] [place] [address] Laure Linton MD [address] [place], [place] [phone] 08/21/2025 8:00 AM EST Office Visit [facility] ADULT DENTAL [address] [place], [place] [phone] Breanna Orozco Health Maintenance Due Date Last Done Comments CT Colonography 1959 Colonoscopy 1959 Colorectal Cancer Screening 1959 FIT DNA/Cologuard 1959 FIT 1959 FOBT 1959 Sigmoidoscopy 1959 DTaP/Tdap/Td Vaccines (1 - Tdap) 1978 Pneumococcal Vaccine: 50+ Years (1 of 1 - PCV) 2009 Zoster Vaccines (1 of 2) 2009 COVID-19 Vaccine (3 - 2023-2 5 season) 2025 09/14/2024, 07/27/2023 Influenza Vaccine (#1) 2025 , 07/27/2023 Dental Oral Exam 07/27/2025 01/23/2025, 06/30/2024, 10/05/2023 Dental Prophylaxis 07/27/2025 01/23/2025, 06/02/2024, 10/05/2023 SDOH Screening 09/08/2025 09/08/2024 Alcohol/Substance Use Screening 01/11/2026 01/11/2025 Depression Screening 01/11/2026 01/11/2025, 01/11/2025 Tobacco Screening 01/23/2026 01/23/2025 Dental X-Ray: Bitewings 01/24/2026 01/24/20 25, 10/05/2023 Dental X-Ray: Full Mouth 10/06/2026 10/05/2023 Lipid Panel 09/14/2029 09/14/2024 RSV Patients and Patients Aged 60 years or older (1 - 1-dose 75+ series) 2034 Hepatitis C Screening Completed 10/12/2024 HIB Vaccines [...] Procedure Name Priority Date/Time Associated Diagnosis Comments PROPHYLAXIS - ADULT Routine 01/23/2025 9 :00 AM EDT Dental calculus Dental plaque BITEWINGS - 4 RADIOGRAPHIC IMAGES Routine 01/23/2025 9:00 AM EDT PERIODIC ORAL EVALUATION - ESTABLISHED PATIENT Routine 01/23/2025 9:00 AM EDT HEPATITIS PANEL, GENERAL Routine 10/12/2024 3:11 PM EST Microcytosis Personal history of other specified conditions LIPID PANEL WITH REFLEX TO DIRECT LDL Routine 09/14/2024 10:19 AM EST Primary hypertension INTRAORAL - COMPLETE SERIES OF RADIOGRAPHIC IMAGES Routine 10/05/2023 10:00 AM EST Excessive attrition of teeth, limited to enamel Dental calculus Loss of teeth due to cavities, class III edentulism from Last 3 Months or Most Recently Relevant to Health Maintenance Results * Hepatitis Panel, General (10/12/2024 3:11 PM EST) Hepatitis A IgM Nonreactive Nonreactive [facility] Comment:IgM antibodies to CUBA V not detected; does not exclude earlyacute or recovered HAV infection. ~Hepatitis B Surface Antibody NONREACTIVE Nonreactive [facility] Comment:Nonreactive: < 8.00 mIU/mL Hepatitis B Core Antibody Nonreactive Nonreactive [facility] Hepatitis C Antibody Nonreactive Nonreactive [facility] Comment:Antibodies to HCV no t detected; does not exclude early acuteHCV infection. Hepatitis B Surface Ag Negative Negative [facility] Blood 10/12/2024 3:11 PM EST 10/12/2024 4:20 PM EST us Laure Linton MD LAB BLOOD ORDERABLES Fin al Result [facility] [address] [place] [phone] * (ABNORMAL) Lipid Panel with Reflex to Direct LDL (09/14/2024 10:19 AM EST) Triglycerides 71 <150 mg/dL [facility] Comment:Desirable Triglyceri de: less than 150 mg/dLBorderline High Triglyceride 150-199 mg/dLHigh Triglyceride: 200-499 mg/dLVery High Triglyceride: greater than or equal to 5OO mg/dL Cholesterol 185 <200 mg/dL [facility] Comment:Desirable Cholestero l: less than 200 mg/dLBorderline High Cholesterol: 200-239 mg/dLHigh Cholesterol: greater than 239 mg/dL LDL Cholesterol Calculated 127(H) <100 mg/dL [facility] Comment:Desirable LDL: less than 100 mg/dLNear Optimal/Above Optimal LDL: 110- 129 mg/dLBorderline High LDL: 130-159 mg/dLHigh LDL: 160-189 mg/dLVery High LDL: greater than or equal to 190 mg/dL HDL Cholesterol 44 >40 mg/dL [facility] Comment:Desirable HDL: great er than 40 mg/dL Note: This HDL assay may give artificially low results in patients with liver disease. Blood 09/14/2024 10:1 9 AM EST 09/14/2024 11:07 AM EST us Laure Linton MD LAB BLOOD ORDERABLES Fin al Result [facility] [address] [place] [phone] from Last 3 Months or Most Recently Relevant to Health Maintenance Insurance [employer] [place] [phone] [facility] STAND ADULT Care Teams Store Clerk Cashier Relationship Specialty Start Date End Date Laure Linton MD [address] [place] [phone] PCP - General Internal Medicine 09/14/24
--- OUTSIDE RECORDS SUMMARY | 2025-05-23 09:31 | XMS_ITS | Encounter Summary ---
Author Organization [employer] Address [address] [facility] [address] [place] [address] Care Team Providers Care Director Transportation Name Role Phone Laure Linton MD Primary Care Provider + Reason for Visit * Reason Onset Date Comments NEW PATIENT 09/29/2023 Encounter Details Date Type Department Care Team (Late st Contact Info) Description 09/29/2023 Telephone [facility] MEDICINE [address] [place], [place] [phone] Riaz Alexander MD [address] [place], [place] [phone] NEW PATIENT Social History Tobacco Use Types [...] Walk in Hours. Please contact pt @ [phone] documented in this encounter Plan of Treatment Upcoming Encounters Date Type Department Care Team (Late st Contact Info) Description 05/26/2025 10:30 AM EDT Telemedicine [facility] MEDICINE [address] [place], [place] [phone] Laure Linton MD [address] [place] [address] 08/21/2025 8:00 AM EST Office Visit [facility] ADULT DENTAL [address] [place] [address] Breanna Orozco documented as of this encounter Visit Diagnoses Not on filedocumented in this encounter Care Teams Director Transportation Relationship Specialty Start Date End Date Laure Linton MD [address] [place] [address] PCP - General Internal Medicine 09/14/24 documented as of this encounter
[2025-05-23 12:34] LABS: Alanine Aminotransferase 28 U/L (0-40); Albumin Level 4.4 g/dL (3.5-5.0); Alkaline Phosphatase 102 U/L (39-117); Anion Gap 12 (12-20); Aspartate Amino Transferase 28 U/L (5-37); Blood Urea Nitrogen 14 mg/dL (9-16); Calcium 9.2 mg/dL (8.4-10.2); Carbon Dioxide 26 mmol/L (22-29); Chloride 107 mmol/L (96-108); Cholesterol 121 mg/dL (<200); Estimated Glomerular Filt Rate > 60; HDL Cholesterol 42 mg/dL (>40); Potassium 4.3 mmol/L (3.3-5.1); Sodium 141 mmol/L (135-145); Total Protein 7.3 g/dL (6.5-8.0); Triglycerides 69 mg/dL (<150)
[2025-05-23 14:08] LABS: Reflex LDLD? No
== END 2025-05-23 08:15 | disposition home or self-care (01) ==
LOC: HO.HHCL 08:14
PROVIDERS: PCP Internal Medicine; Visit Provider Internal Medicine
DX: I10 Essential (primary) hypertension (principal); E78.00 Pure hypercholesterolemia, unspecified
CPT/HCPCS: 36415; 80053; 80061